=== PATIENT | male | born 1945 | race Hispanic/Latino ===

== ENCOUNTER 2020-05-08 12:30 | Inpatient (IN) | payer MEDICARE, OTHER ==
[~2020-05-08] VITALS: Ht 170.2 cm; Wt 50.7 kg
[2020-05-08 15:17] LABS: BASOPHILS % (AUTO) 0.6 % (0.0-5.0); EOSINOPHILS % (AUTO) 0.4 % (0.0-8.0); HEMATOCRIT 38.2 % (42-54); LYMPHOCYTES % (AUTO) 23.4 % (21.0-51.0); MEAN CORPUSCULAR HEMOGLOBIN 27.9 pg (27.0-33.0); MEAN CORPUSCULAR HGB CONC 32.5 g/dL (32.0-36.0); MONOCYTES % (AUTO) 8.8 % (3.0-13.0); NEUTROPHILS % (AUTO) 66.6 % (40.0-77.0); PLATELET COUNT (AUTO) 259 K/uL (130-400); RED BLOOD CELL COUNT(AUTO) 4.44 MIL/uL (4.50-6.20); RED CELL DISTRIBUTION WIDTH 13.5 % (11.0-15.5); WHITE BLOOD COUNT (AUTO) 5.3 K/uL (4.8-10.8)
[2020-05-08] MEDS ORDERED: ONDANSETRON 4MG INJ ONE (15:27)
[2020-05-08] MEDS ORDERED: MORPHINE 2 MG SYG ONE (15:27)
[2020-05-08 15:35] LABS: INR 1.01 (0.85-1.15)
[2020-05-08 15:36] LABS: ALBUMIN 3.3 g/dL (3.5-5.0); BILIRUBIN,TOTAL 0.5 mg/dL (0.2-1.0); CREATININE 0.7 mg/dL (0.5-1.5); PARTIAL THROMBOPLASTIN TIME 24.2 SEC (26.3-35.5); TOTAL PROTEIN, SERUM 7.1 g/dL (6.0-8.3)
[2020-05-08] MEDS ORDERED: MORPHINE 4 MG SYG IVP PRN (19:30)
[2020-05-08] MEDS: 0.9%NACL 1000ML 1,000 ML IV SCH (19:30)
[2020-05-08] MEDS ORDERED: ONDANSETRON 4MG INJ IVP PRN (19:30)
[2020-05-08] MEDS ORDERED: LACTULOSE 20 GM/30 ML UDCUP PO PRN (19:30)
[2020-05-08] MEDS ORDERED: ACETAMINOPHEN 325 MG TAB PO PRN (19:30)
[2020-05-08] MEDS ORDERED: TEMAZEPAM 15 MG CAPSULE PO PRN (19:30)
[2020-05-08] MEDS ORDERED: ACETAMINOPHEN 650 MG SUPPOSITORY RC PRN (19:30)
[2020-05-08] MEDS ORDERED: CLONIDINE HCL 0.1 MG TABLET PO PRN (19:30)
[2020-05-08 20:34] LABS: CREATINE KINASE, TOTAL 55 U/L (21-232); MYOGLOBIN 38 ng/mL (10-92); TROPONIN I < 0.04 ng/mL (0.00-0.06)
[2020-05-08] MEDS ORDERED: MORPHINE 4 MG SYG ONE (20:40)
[2020-05-08] MEDS: INSULIN HUMULIN R 100 UNIT/ML 3ML SQ SCH (21:00)
[2020-05-08] MEDS ORDERED: HALOPERIDOL INJ 5 MG/ML VIAL ONE (21:10)
[2020-05-08 22:45] VITALS: BP 176/83
[2020-05-08] MEDS ORDERED: HALOPERIDOL INJ 5 MG/ML VIAL IM PRN (23:45)
[2020-05-09] MEDS: HYDROCODONE/ACETAMINOPHEN 5/325 MG TAB PO PRN ×2 (01:10→20:16)
[2020-05-09 02:04] LABS: CREATINE KINASE, TOTAL 246 U/L (21-232); MYOGLOBIN 204 ng/mL (10-92); TROPONIN I < 0.04 ng/mL (0.00-0.06)
[2020-05-09] MEDS: 0.9%NACL 1000ML 1,000 ML IV SCH ×3 (03:30→19:58)
[2020-05-09 03:35] VITALS: BP 151/89
[2020-05-09] MEDS: INSULIN HUMULIN R 100 UNIT/ML 3ML SQ SCH ×4 (07:17→20:52)
[2020-05-09 07:23] LABS: HEMATOCRIT 38.2 % (42-54); MEAN CORPUSCULAR HEMOGLOBIN 28.4 pg (27.0-33.0); MEAN CORPUSCULAR VOLUME 86.2 fL (79-99); RED BLOOD CELL COUNT(AUTO) 4.43 MIL/uL (4.50-6.20); RED CELL DISTRIBUTION WIDTH 13.6 % (11.0-15.5); WHITE BLOOD COUNT (AUTO) 7.9 K/uL (4.8-10.8)
[2020-05-09 07:49] LABS: ALANINE AMINOTRANSFERASE 21 U/L (12-78); ALBUMIN 3.3 g/dL (3.5-5.0); ASPARTATE AMINOTRANSFERASE 24 U/L (10-37); BILIRUBIN,TOTAL 0.6 mg/dL (0.2-1.0); CARBON DIOXIDE 29 mmol/L (21-32); CHLORIDE 102 mmol/L (101-111); CREATINE KINASE, TOTAL 269 U/L (21-232); CREATININE 0.8 mg/dL (0.5-1.5); GLOMERULAR FILTR. RATE CALC 100 mL/min (>60); GLUCOSE,RANDOM 98 mg/dL (70-105); MYOGLOBIN 151 ng/mL (10-92); SODIUM SERUM 138 mmol/L (136-145); TOTAL PROTEIN, SERUM 7.1 g/dL (6.0-8.3); TROPONIN I < 0.04 ng/mL (0.00-0.06); UREA NITROGEN, BLOOD 13 mg/dL (7-18)
[2020-05-09 08:00] VITALS: BP 158/87
[2020-05-09] MEDS: ENOXAPARIN SODIUM 40 MG/0.4 ML SYRINGE SQ SCH (09:00)
[2020-05-09] MEDS: POLYETHYLENE GLYCOL 3350 17 GM POWD.PACK PO SCH (09:00)
[2020-05-09] MEDS: PANTOPRAZOLE 40 MG TAB DR PO SCH (09:00)
[2020-05-09] MEDS: MORPHINE 2 MG SYG IVP PRN ×2 (10:07→17:26)
[2020-05-09 11:44] VITALS: BP 178/94
[2020-05-09 16:00] VITALS: BP 139/84
[2020-05-09 19:05] VITALS: BP 164/95
[2020-05-09 19:39] LABS: CREATINE KINASE, TOTAL 267 U/L (21-232); MYOGLOBIN 137 ng/mL (10-92)
[2020-05-09 23:16] VITALS: BP 147/85
[2020-05-09 23:33] LABS: APPEARANCE,URINE Clear (CLEAR); BILIRUBIN,URINE Negative (NEGATIVE); COLOR,URINE Yellow (YELLOW); GLUCOSE, URINE (UA) Negative (NEGATIVE); KETONES,URINE 15 mg/dL (NEGATIVE); LEUKOCYTE ESTERASE ,URINE Small (NEGATIVE); NITRATE,URINE Negative (NEGATIVE); OCCULT BLOOD,URINE Small (NEGATIVE); PH,URINE 6.5 (5.0-8.0); PROTEIN,URINE Negative (NEGATIVE)
[2020-05-10] VITALS (25 sets, daily range): BP systolic 101–168; BP diastolic 54–97
[2020-05-10 00:10] LABS: BACTERIA,URINE None Seen /HPF (None Seen); SQUAMOUS EPITHELIAL CELL,UR Rare /HPF (0-2); WBC,URINE 0-1 /HPF (0-1)
[2020-05-10 00:11] LABS: RBC,URINE 0-1 /HPF (0-1)
[2020-05-10] MEDS: 0.9%NACL 1000ML 1,000 ML IV SCH ×3 (03:30→19:30)
[2020-05-10 05:21] LABS: BASOPHILS % (AUTO) 0.4 % (0.0-5.0); EOSINOPHILS % (AUTO) 1.1 % (0.0-8.0); HEMATOCRIT 36.1 % (42-54); LYMPHOCYTES % (AUTO) 18.8 % (21.0-51.0); MEAN CORPUSCULAR HEMOGLOBIN 28.1 pg (27.0-33.0); MEAN CORPUSCULAR HGB CONC 33.2 g/dL (32.0-36.0); MEAN CORPUSCULAR VOLUME 84.5 fL (79-99); MONOCYTES % (AUTO) 10.1 % (3.0-13.0); NEUTROPHILS % (AUTO) 69.4 % (40.0-77.0); PLATELET COUNT (AUTO) 208 K/uL (130-400); RED BLOOD CELL COUNT(AUTO) 4.27 MIL/uL (4.50-6.20); RED CELL DISTRIBUTION WIDTH 13.3 % (11.0-15.5); WHITE BLOOD COUNT (AUTO) 8.4 K/uL (4.8-10.8)
[2020-05-10] MEDS: INSULIN HUMULIN R 100 UNIT/ML 3ML SQ SCH ×4 (05:32→20:44)
[2020-05-10 05:51] LABS: ALBUMIN 2.9 g/dL (3.5-5.0); BILIRUBIN,TOTAL 0.7 mg/dL (0.2-1.0); CREATININE 0.6 mg/dL (0.5-1.5); MAGNESIUM 1.8 mg/dL (1.80-2.40); POTASSIUM 3.8 mmol/L (3.5-5.1); TOTAL PROTEIN, SERUM 6.3 g/dL (6.0-8.3)
[2020-05-10] MEDS: MORPHINE 2 MG SYG IVP PRN (06:12)
[2020-05-10] MEDS: POLYETHYLENE GLYCOL 3350 17 GM POWD.PACK PO SCH (08:55)
[2020-05-10] MEDS: ENOXAPARIN SODIUM 40 MG/0.4 ML SYRINGE SQ SCH (08:55)
[2020-05-10] MEDS: PANTOPRAZOLE 40 MG TAB DR PO SCH (08:56)
[2020-05-10] MEDS ORDERED: MIDAZOLAM HCL 1 MG/ML 2ML VIAL ONE (10:57)
[2020-05-10] MEDS ORDERED: LIDOCAINE PF 100MG/5ML (2%) SYRINGE 5ML ONE (10:57)
[2020-05-10] MEDS ORDERED: DEXAMETHASONE SOD PHOSPHATE 10MG/ML 1ML VIAL ONE (10:57)
[2020-05-10] MEDS ORDERED: SUCCINYLCHOLINE CHLORIDE 20 MG/ML 10 ML VIAL ONE (10:57)
[2020-05-10] MEDS ORDERED: ONDANSETRON 4MG INJ ONE (10:58)
[2020-05-10] MEDS ORDERED: PROPOFOL 10 MG/ML 20ML VIAL IV ONE ×2 (10:58→18:24)
[2020-05-10] MEDS ORDERED: NEOSTIGMINE 5MG/5ML SYR IV ONE (10:58)
[2020-05-10] MEDS ORDERED: FENTANYL CITRATE PF 50 MCG/1 ML 2ML VIAL ONE (10:58)
[2020-05-10] MEDS ORDERED: ROCURONIUM 10MG/1ML SYR 10 MG/ML ML ONE (10:58)
[2020-05-10] MEDS ORDERED: GLYCOPYRROLATE 1 MG/5 ML SYRINGE ONE (10:58)
[2020-05-10] MEDS ORDERED: ROPIVACAINE 0.5% 5MG/ML 30ML IJ ONE (11:01)
[2020-05-10] MEDS ORDERED: ALBUMIN (HUMAN) 5% 0 ML IV ONE (11:02)
[2020-05-10] MEDS: CEFAZOLIN SODIUM 1 GM VIAL ONE ×2 (17:01→18:35)
[2020-05-11] VITALS (7 sets, daily range): BP systolic 120–149; BP diastolic 73–89
[2020-05-11] MEDS: HYDROCODONE/ACETAMINOPHEN 5/325 MG TAB PO PRN ×2 (00:25→20:47)
[2020-05-11] MEDS: 0.9%NACL 1000ML 1,000 ML IV SCH ×3 (03:17→17:01)
[2020-05-11 05:50] LABS: HEMATOCRIT 31.2 % (42-54); MEAN CORPUSCULAR HEMOGLOBIN 28.2 pg (27.0-33.0); MEAN CORPUSCULAR HGB CONC 33.7 g/dL (32.0-36.0); MEAN CORPUSCULAR VOLUME 83.9 fL (79-99); RED BLOOD CELL COUNT(AUTO) 3.72 MIL/uL (4.50-6.20); WHITE BLOOD COUNT (AUTO) 10.6 K/uL (4.8-10.8)
[2020-05-11 06:15] LABS: CREATININE 0.8 mg/dL (0.5-1.5); MAGNESIUM 1.7 mg/dL (1.80-2.40); POTASSIUM 4.4 mmol/L (3.5-5.1)
[2020-05-11] MEDS: INSULIN HUMULIN R 100 UNIT/ML 3ML SQ SCH ×4 (06:41→21:00)
[2020-05-11] MEDS ORDERED: GLUCAGON 1MG KIT 1 MG ML IM PRN (06:45)
[2020-05-11] MEDS ORDERED: KCL 20 MEQ ERTAB PO PRN (06:45)
[2020-05-11] MEDS ORDERED: MAGNESIUM 2GM PREMIX 50ML 50 ML IV PRN (06:45)
[2020-05-11] MEDS ORDERED: DEXTROSE 50%-WATER 50 ML DISP.SYRIN IV PRN (06:45)
[2020-05-11] MEDS ORDERED: LIDOCAINE HCL-MPF 1% 2ML VIAL IV PRN (06:45)
[2020-05-11] MEDS ORDERED: POTASSIUM CHLORIDE 20MEQ/100ML 100 ML IV PRN ×2 (06:45)
[2020-05-11] MEDS ORDERED: LIDOCAINE HCL-MPF 1% 2ML VIAL IM PRN (06:45)
[2020-05-11] MEDS: PANTOPRAZOLE 40 MG TAB DR PO SCH (09:14)
[2020-05-11] MEDS: POLYETHYLENE GLYCOL 3350 17 GM POWD.PACK PO SCH (09:14)
[2020-05-11] MEDS: ENOXAPARIN SODIUM 40 MG/0.4 ML SYRINGE SQ SCH (09:14)
[2020-05-11] MEDS ORDERED: ATOR40TA71 PO (09:47)
[2020-05-11] MEDS ORDERED: METF-444 PO (09:47)
[2020-05-11] MEDS ORDERED: SERT-440 PO (09:47)
[2020-05-11] MEDS ORDERED: TRAZ-253 PO (09:47)
[2020-05-11] MEDS ORDERED: HALO5TAB PO (09:47)
[2020-05-11] MEDS ORDERED: DIVA250T45 PO (09:47)
[2020-05-11] MEDS: MORPHINE 2 MG SYG IVP PRN (09:51)
[2020-05-11] MEDS: METOPROLOL SUCCINATE 50 MG TAB.SR.24H PO SCH (11:02)
[2020-05-11] MEDS: CEFTRIAXONE 1G VIAL IVP SCH (14:35)
[2020-05-11] MEDS: DIVALPROEX SODIUM 250 MG TABLET.DR PO SCH (20:42)
[2020-05-11] MEDS: ATORVASTATIN 40 MG TABLET PO SCH (20:42)
[2020-05-12 00:01] VITALS: BP 135/75
[2020-05-12] MEDS: 0.9%NACL 1000ML 1,000 ML IV SCH ×3 (01:15→19:30)
[2020-05-12 04:17] VITALS: BP 143/83
[2020-05-12 05:15] LABS: HEMATOCRIT 28.3 % (42-54); MEAN CORPUSCULAR HEMOGLOBIN 28.9 pg (27.0-33.0); MEAN CORPUSCULAR HGB CONC 34.3 g/dL (32.0-36.0); MEAN CORPUSCULAR VOLUME 84.2 fL (79-99); RED BLOOD CELL COUNT(AUTO) 3.36 MIL/uL (4.50-6.20); RED CELL DISTRIBUTION WIDTH 13.4 % (11.0-15.5); WHITE BLOOD COUNT (AUTO) 10.9 K/uL (4.8-10.8)
[2020-05-12 05:36] LABS: CREATININE 0.6 mg/dL (0.5-1.5); MAGNESIUM 1.7 mg/dL (1.80-2.40); POTASSIUM 3.5 mmol/L (3.5-5.1)
[2020-05-12 07:00] VITALS: BP 162/81
[2020-05-12] MEDS: INSULIN HUMULIN R 100 UNIT/ML 3ML SQ SCH ×4 (07:30→21:00)
[2020-05-12] MEDS: SERTRALINE HCL 50 MG TABLET PO SCH (07:58)
[2020-05-12] MEDS: POLYETHYLENE GLYCOL 3350 17 GM POWD.PACK PO SCH (07:59)
[2020-05-12] MEDS: PANTOPRAZOLE 40 MG TAB DR PO SCH (07:59)
[2020-05-12] MEDS: HYDROCODONE/ACETAMINOPHEN 5/325 MG TAB PO PRN (07:59)
[2020-05-12] MEDS: CEFTRIAXONE 1G VIAL IVP SCH (08:00)
[2020-05-12] MEDS: ENOXAPARIN SODIUM 40 MG/0.4 ML SYRINGE SQ SCH (10:17)
[2020-05-12] MEDS: METOPROLOL SUCCINATE 50 MG TAB.SR.24H PO SCH (10:30)
[2020-05-12 11:30] VITALS: BP 123/68
[2020-05-12] MEDS ORDERED: BISACODYL 10 MG SUPP.RECT RC SCH ×2 (12:50→15:45)
[2020-05-12 16:00] VITALS: BP 130/70
[2020-05-12 20:00] VITALS: BP 140/73
[2020-05-12] MEDS: DIVALPROEX SODIUM 250 MG TABLET.DR PO SCH (21:00)
[2020-05-12] MEDS: ATORVASTATIN 40 MG TABLET PO SCH (21:00)
[2020-05-13] VITALS: BP 144/87
[2020-05-13] MEDS: 0.9%NACL 1000ML 1,000 ML IV SCH ×2 (03:30→20:27)
[2020-05-13 03:45] VITALS: BP 153/68
[2020-05-13 05:02] LABS: HEMATOCRIT 28.5 % (42-54); MEAN CORPUSCULAR HEMOGLOBIN 27.8 pg (27.0-33.0); MEAN CORPUSCULAR HGB CONC 31.9 g/dL (32.0-36.0); MEAN CORPUSCULAR VOLUME 87.2 fL (79-99); RED BLOOD CELL COUNT(AUTO) 3.27 MIL/uL (4.50-6.20); RED CELL DISTRIBUTION WIDTH 13.5 % (11.0-15.5); WHITE BLOOD COUNT (AUTO) 8.4 K/uL (4.8-10.8)
[2020-05-13 05:22] LABS: CREATININE 0.7 mg/dL (0.5-1.5); POTASSIUM 3.6 mmol/L (3.5-5.1)
[2020-05-13] MEDS: INSULIN HUMULIN R 100 UNIT/ML 3ML SQ SCH ×4 (07:30→20:34)
[2020-05-13 08:00] VITALS: BP 154/78
[2020-05-13] MEDS: POLYETHYLENE GLYCOL 3350 17 GM POWD.PACK PO SCH (09:00)
[2020-05-13] MEDS: PANTOPRAZOLE 40 MG TAB DR PO SCH (10:07)
[2020-05-13] MEDS: ENOXAPARIN SODIUM 40 MG/0.4 ML SYRINGE SQ SCH (10:07)
[2020-05-13] MEDS: CEFTRIAXONE 1G VIAL IVP SCH (10:07)
[2020-05-13] MEDS: SERTRALINE HCL 50 MG TABLET PO SCH (10:07)
[2020-05-13] MEDS: METOPROLOL SUCCINATE 50 MG TAB.SR.24H PO SCH (10:30)
[2020-05-13 11:49] VITALS: BP 138/75
[2020-05-13 16:00] VITALS: BP 134/73
[2020-05-13 20:00] VITALS: BP 131/64
[2020-05-13] MEDS: DIVALPROEX SODIUM 250 MG TABLET.DR PO SCH (20:21)
[2020-05-13] MEDS: ATORVASTATIN 40 MG TABLET PO SCH (20:21)
[2020-05-14] VITALS (7 sets, daily range): BP systolic 114–136; BP diastolic 54–79
[2020-05-14] MEDS: POTASSIUM CHLORIDE 10% ELIXIR 20 MEQ/15 ML UDCUP PO PRN ×4 (02:46→16:34)
[2020-05-14] MEDS: 0.9%NACL 1000ML 1,000 ML IV SCH ×3 (03:13→11:30)
[2020-05-14] MEDS: INSULIN HUMULIN R 100 UNIT/ML 3ML SQ SCH ×4 (05:52→20:18)
[2020-05-14] MEDS: PANTOPRAZOLE 40 MG TAB DR PO SCH (09:14)
[2020-05-14] MEDS: CEFTRIAXONE 1G VIAL IVP SCH (09:14)
[2020-05-14] MEDS: POLYETHYLENE GLYCOL 3350 17 GM POWD.PACK PO SCH (09:14)
[2020-05-14] MEDS: SERTRALINE HCL 50 MG TABLET PO SCH (09:14)
[2020-05-14] MEDS: ENOXAPARIN SODIUM 40 MG/0.4 ML SYRINGE SQ SCH (09:15)
[2020-05-14] MEDS: METOPROLOL SUCCINATE 50 MG TAB.SR.24H PO SCH (09:41)
[2020-05-14] MEDS ORDERED: TAMSULOSIN HCL 0.4 MG CAP.ER.24H PO SCH (12:30)
[2020-05-14] MEDS ORDERED: TAMSULOSIN HCL 0.4 MG CAP.ER.24H ONE (16:32)
[2020-05-14] MEDS: DIVALPROEX SODIUM 250 MG TABLET.DR PO SCH (21:08)
[2020-05-14] MEDS: ATORVASTATIN 40 MG TABLET PO SCH (21:08)
[2020-05-15 04:00] VITALS: BP 135/77
[2020-05-15 05:32] LABS: HEMATOCRIT 23.6 % (42-54); MEAN CORPUSCULAR HGB CONC 33.5 g/dL (32.0-36.0); MEAN CORPUSCULAR VOLUME 83.7 fL (79-99); PLATELET COUNT (AUTO) 207 K/uL (130-400); RED BLOOD CELL COUNT(AUTO) 2.82 MIL/uL (4.50-6.20); RED CELL DISTRIBUTION WIDTH 13.1 % (11.0-15.5); WHITE BLOOD COUNT (AUTO) 5.3 K/uL (4.8-10.8)
[2020-05-15 05:47] LABS: CREATININE 0.5 mg/dL (0.5-1.5); POTASSIUM 3.6 mmol/L (3.5-5.1)
[2020-05-15 06:00] LABS: BASOPHILS % (MANUAL) 2 % (0-2); EOSINOPHILS % (MANUAL) 2 % (1-6); LYMPHOCYTES % (MANUAL) 23 % (22-44); MAN.DIFF COMMENT-IMPRESSION MANUAL DIFFERENTIAL; MONOCYTES % (MANUAL) 6 % (2-9); SEGMENTED NEUTROPHILS % 67 % (40-70)
[2020-05-15 06:01] LABS: PLATELET MORPHOLOGY COMMENT ADEQUATE
[2020-05-15 07:00] VITALS: BP 143/73
[2020-05-15] MEDS: INSULIN HUMULIN R 100 UNIT/ML 3ML SQ SCH ×4 (07:30→21:00)
[2020-05-15] MEDS: TAMSULOSIN HCL 0.4 MG CAP.ER.24H PO SCH (09:46)
[2020-05-15] MEDS: CEFTRIAXONE 1G VIAL IVP SCH (09:46)
[2020-05-15] MEDS: PANTOPRAZOLE 40 MG TAB DR PO SCH (09:46)
[2020-05-15] MEDS: SERTRALINE HCL 50 MG TABLET PO SCH (09:47)
[2020-05-15] MEDS: ENOXAPARIN SODIUM 40 MG/0.4 ML SYRINGE SQ SCH (09:47)
[2020-05-15] MEDS: POLYETHYLENE GLYCOL 3350 17 GM POWD.PACK PO SCH (09:47)
[2020-05-15] MEDS: METOPROLOL SUCCINATE 50 MG TAB.SR.24H PO SCH (09:49)
[2020-05-15 11:30] VITALS: BP 121/67
[2020-05-15 16:00] VITALS: BP 142/86
[2020-05-15 20:56] VITALS: BP 165/80
[2020-05-15] MEDS: DIVALPROEX SODIUM 250 MG TABLET.DR PO SCH (21:58)
[2020-05-15] MEDS: ATORVASTATIN 40 MG TABLET PO SCH (21:58)
[2020-05-15 23:51] VITALS: BP 142/82
[2020-05-16 04:37] VITALS: BP 160/87
[2020-05-16 06:04] LABS: CREATININE 0.5 mg/dL (0.5-1.5); POTASSIUM 3.6 mmol/L (3.5-5.1)
[2020-05-16 07:00] VITALS: BP 146/76
[2020-05-16] MEDS: INSULIN HUMULIN R 100 UNIT/ML 3ML SQ SCH ×3 (07:17→16:30)
[2020-05-16] MEDS: PANTOPRAZOLE 40 MG TAB DR PO SCH (09:00)
[2020-05-16] MEDS: CEFTRIAXONE 1G VIAL IVP SCH (09:00)
[2020-05-16] MEDS: SERTRALINE HCL 50 MG TABLET PO SCH (09:00)
[2020-05-16] MEDS: ENOXAPARIN SODIUM 40 MG/0.4 ML SYRINGE SQ SCH (09:00)
[2020-05-16] MEDS: TAMSULOSIN HCL 0.4 MG CAP.ER.24H PO SCH (09:00)
[2020-05-16] MEDS: POLYETHYLENE GLYCOL 3350 17 GM POWD.PACK PO SCH (09:00)
[2020-05-16] MEDS: METOPROLOL SUCCINATE 50 MG TAB.SR.24H PO SCH (10:30)
[2020-05-16 11:30] VITALS: BP 135/72
[2020-05-16 16:00] VITALS: BP 112/71
== END 2020-05-16 17:54 | DRG 522 ==
LOC: EDH 12:30 → EDHIP 16:00 → 3BH 21:55
PROVIDERS: ADMIT Internal Medicine Critical Care Medicine; ATTEND Internal Medicine Critical Care Medicine
PROC: 0SRS039 Replacement of Left Hip Joint, Femoral Surface with Ceramic Synthetic Substitute, Cemented, Open Approach (ICD-10-PCS; principal; 2020-05-10 18:30)
DX: S72.002A Fracture of unspecified part of neck of left femur, initial encounter for closed fracture (principal); R64 Cachexia; Z68.1 Body mass index [BMI] 19.9 or less, adult; N39.0 Urinary tract infection, site not specified; F31.9 Bipolar disorder, unspecified; I10 Essential (primary) hypertension; E78.5 Hyperlipidemia, unspecified; E11.9 Type 2 diabetes mellitus without complications; F03.90 Unspecified dementia, unspecified severity, without behavioral disturbance, psychotic disturbance, mood disturbance, and anxiety; R62.7 Adult failure to thrive; Z79.84 Long term (current) use of oral hypoglycemic drugs; Z20.822 Contact with and (suspected) exposure to COVID-19; W18.39XA Other fall on same level, initial encounter; Y93.89 Activity, other specified; Y92.89 Other specified places as the place of occurrence of the external cause; Y99.8 Other external cause status
CPT/HCPCS: 36415; 71045; 73502; 80048; 80053; 81001; 82550; 82948; 83735; 83874; 84132; 84145; 84484; 85025; 85027; 85610; 85730; 86900; 86901; 87040; 87426; 88304; 88311; 92526; 92610; 93005; 97039; A4354; C1776; G0378; J0330; J0690; J0696; J1100; J1630; J1650; J2001; J2250; J2270; J2405; J2704; J2710; J2795; J3010; J3490; J7030; J7120; P9045; U0003

== ENCOUNTER 2024-02-18 09:50 | Inpatient (IN) | payer OTHER, MEDICARE ==
[~2024-02-18] VITALS: Ht 165.1 cm; Wt 49.4 kg
[~2024-02-18 09:50] MED LIST: ATOR40TA71 PO; DIVA250T45 PO; HALO5TAB PO; SERT-440 PO
--- NOTE | 2024-02-18 10:15 | ERN ---
ED Note History of Present Illness Stated Complaint: FLU LIKE SYMPTOMS Chief Complaint: Influenza Time Seen by MD: 10:05 Dictation: PATIENT IS A 78-YEAR-OLD MALE WITH ALZHEIMER'S THAT IS UNABLE TO PROVIDE A HISTORY. HOWEVER EMS STATES THAT FAMILY SENT HIM IN BECAUSE HE HAD FLU-LIKE SYMPTOMS FOR THE LAST 2-3 DAYS WITH A DECREASED APPETITE AND NOT TAKEN HIS MEDICATIONS. NO NAUSEA VOMITING PATIENT NOTED TO BE VERY LETHARGIC ON APPROACH HOWEVER WE WILL OPEN HIS EYES. NOT ANSWERING QUESTIONS. Allergies: Coded Allergies: No Known Drug Allergies (Verified Allergy, Unknown, 05/08/20) Home Meds Reported Medications Sertraline HCl (Sertraline HCl) 100 Mg Tablet, 100 MG PO DAILY 05/11/20 Haloperidol (Haloperidol) 5 Mg Tablet, 5 MG PO HS 05/11/20 Divalproex Sodium (Divalproex Sodium ER) 250 Mg Tab.er.24h, 250 MG PO HS 05/11/20 Atorvastatin Calcium (Atorvastatin Calcium) 40 Mg Tablet, 40 MG PO HS 05/11/20 Past Medical History Past Medical History: Depression, High Cholesterol, Hypertension, Seizure Additional Past Medical Hx: alzhimner's Surgical History: Other Surgical History Other: LEFT HIP RX RN Note Reviewed/Agreed w/PFSH: Yes Review of System Dictation CONSTITUTIONAL: NEGATIVE EXCEPT FOR HPI WEAKNESS/FLU-LIKE SYMPTOMS HEAD/FACE: NEGATIVE EXCEPT FOR HPI EENT: NEGATIVE EXCEPT FOR HPI RESPIRATORY: NEGATIVE EXCEPT FOR HPI GASTROINTESTINAL/ABDOMINAL: NEGATIVE EXCEPT FOR HPI GENITOURINARY: NEGATIVE EXCEPT FOR HPI MUSCULOSKELETAL: NEGATIVE EXCEPT FOR HPI INTEGUMENTARY: NEGATIVE EXCEPT FOR HPI NEUROLOGICAL/PSYCH: NEGATIVE EXCEPT FOR HPI HEMATOLOGIC/LYMPHATIC: NEGATIVE EXCEPT FOR HPI ALL SYSTEMS NEGATIVE, EXCEPT NOTED ABOVE. 13 POINT REVIEW OF SYSTEMS ASSESSED AND ALL NEGATIVE EXCEPT FOR ABOVE. Initial Vital Sign VS Vital Signs Date Time Temp Pulse Resp B/P (MAP) Pulse Ox O2 Delivery O2 Flow Rate FiO2 02/18/24 09:54 100.2 120 20 136/83 97 02/18/24 13:51 Room Air* 0 21 Physical Exam Dictation VITAL SIGNS REVIEWED GENERAL APPEARANCE: ALERT, LETHARGIC, OPENS EYES TO COMMAND WE WILL NOT ANSWER QUESTIONS APPEARS VERY DEBILITATED HEAD AND FACE: NON-TRAUMATIC. EYES: PERRL, PINK CONJUNCTIVAS, EYELID NO TRAUMA, ANTERIOR CHAMBER WITH ARCUS SENILIS. EARS: PINNAS INTACT AND NO SIGNS OF TRAUMA OR ERYTHEMA EAR CANALS CLEAR AND NO DISCHARGE TM NO ERYTHEMA NOSE: NO DISCHARGE, NO BLEEDING. OROPHARYNX: MOUTH NORMAL, TONGUE PINK, PHARYNX CLEAR,NO ERYTHEMA, TONSILS NO EXUDATES, NO ABSCESSES NOTED, MUCOUS MEMBRANE MOIST NECK: SUPPLE, NON-TENDER, NO THYROMEGALY, NO MASSES, NO JVD, NO BRUITS BREAST:DEFERRED CHEST:NO TENDERNESS, NO CREPITUS, NO PARADOXICAL MOVEMENT, NO RETRACTIONS LUNGS:CLEAR, WELL-VENTILATED, SYMMETRIC, NO RALES, NO WHEEZING, NO RHONCHI, NO STRIDOR, GOOD BREATH SOUNDS BILATERALLY HEART: REGULAR RATE, REGULAR RHYTHM, NO MURMUR, NO GALLOPS VASCULAR: NO PERIPHERAL EDEMA, ABDOMEN: SOFT, POSITIVE BOWEL SOUNDS, NONDISTENDED, NO GUARDING, NONTENDER, NO REBOUND, NO MASSES NO HEPATOMEGALY, NO SPLENOMEGALY, NO GILES'S S IGN, NO HERNIAS. RECTAL: DEFERRED GENITAL: DEFERRED NEUROLOGICAL: SEVERE GENERALIZED BODY WEAKNESS CACHECTIC MUSCULOSKELETAL: NECK NONTENDER, FULL RANGE OF MOTION, BACK NONTENDER, FULL RANGE OF MOTION, EXTREMITIES: NONTENDER, FULL RANGE OF MOTION SKIN: COLOR PINK, DRY, NO TURGOR, NO RASH, NO LACERATIONS, NO ABRASIONS, NO CONTUSIONS. LYMPHATIC: DEFERRED Results (Laboratory/Radiology) Laboratory/Radiology Laboratory Tests Test 02/18/24 11:09 02/18/24 12:00 02/18/24 12:58 White Blood Count 11.7 K/uL (4.8-10.8) H Red Blood Count 4.31 MIL/uL (4.50-6.20) L Hemoglobin 12.7 g/dL (14.0-18.0) L Hematocrit 37.8 % (42-54) L Mean Corpuscular Volume 87.7 fL (79-99) Mean Corpuscular Hemoglobin 29.5 pg (27.0-33.0) Mean Corpuscular Hemoglobin Concent 33.6 g/dL (32.0-36.0) Red Cell Distribution Width 14.1 % (11.0-15.5) Platelet Count 104 K/uL (130-400) L Mean Platelet Volume 11.6 fL (7.5-10.5) H Immature Granulocyte % (Auto) 0.9 % (0-1) Neutrophils (%) (Auto) 77.9 % (40.0-77.0) H Lymphocytes (%) (Auto) 8.4 % (21.0-51.0) L Monocytes (%) (Auto) 12.7 % (3.0-13.0) Eosinophils (%) (Auto) 0.0 % (0.0-8.0) Basophils (%) (Auto) 0.1 % (0.0-5.0) Neutrophils # (Auto) 9.2 K/uL (1.8-7.7) H Lymphocytes # (Auto) 1.0 K/uL (1.0-4.8) Monocytes # (Auto) 1.5 K/uL (0.1-1.0) H Eosinophils # (Auto) 0.00 K/uL (0.00-0.70) Basophils # (Auto) 0.01 K/uL (0.00-0.20) Absolute Immature Granulocyte (auto 0.10 K/uL (0-1) Nucleated Red Blood Cells 0.0 % (0.0-0.19) White Cell Morphology Comment See comments Sodium Level 139 mmol/L (136-145) Potassium Level 3.9 mmol/L (3.5-5.1) Chloride Level 103 mmol/L (101-111) Carbon Dioxide Level 28 mmol/L (21-32) Blood Urea Nitrogen 31 mg/dL (7-18) H Creatinine 1.1 mg/dL (0.5-1.3) Glomerular Filtration Rate Calc 68 mL/min (>90) Random Glucose 128 mg/dL (70-105) H Total Calcium 8.6 mg/dL (8.5-10.1) Troponin I High Sensitivity 75 ng/L (4-75) 91.8 ng/L (4-75) *H Influenza Type A Antigen Positive For Type A Influenza Type B Antigen Negative For Type B SARS-CoV-2 Antigen (Rapid) PRESUMPTIVE NEGATIVE Total Creatine Kinase 446 U/L (21-232) #*H Procalcitonin 4.08 ng/mL (0.05-0.5) H CHEST 1VW REASON: SHORTNESS OF BREATH/COUGH COMPARISON: 02/12/2023 FINDINGS: There is confluent left lower lobe infiltrate consistent with pneumonia. Lungs are otherwise clear. Heart size is normal. Mediastinum and bony thorax appear unremarkable. IMPRESSION: 1. Confluent left lower lobe infiltrate consistent with pneumonia. Labs Reviewed?: Yes EKG Comment: EKG SINUS RHYTHM/HEART RATE 90 PEAKED T-WAVES V4 V5 ED Course ED Course Orders Procedure Category Date Status Time Covid19 (Sars Antigen LAB 02/18/24 Complete Rapid) 10:12 Influenza Type A & B, LAB 02/18/24 Complete Rapid 10:12 Cbc With Differential LAB 02/18/24 Complete 10:12 Troponin I High LAB 02/18/24 Complete Sensitivity 10:12 Urinalysis Profile LAB 02/18/24 Logged 10:12 12 Lead Ekg Tracing- EKG 02/18/24 Resulted Technical 10:12 0.9%Nacl 1000ml (Ns PHA 02/18/24 Complete 1000ml) 10:30 Chest 1vw RAD 02/18/24 Resulted 10:12 Basic Metabolic Panel LAB 02/18/24 Complete 10:12 Blood Cult JANE 02/18/24 In Process 11:46 Ceftriaxone 1g Vial PHA 02/18/24 Complete (Rocephine 1g Inj) 12:00 Azithromycin 500mg+Ns PHA 02/18/24 Complete 250ml (Azithromyci 11:46 Albuterol 0.083% PHA 02/18/24 Complete 2.5mg/3ml (Proventil 12:00 Oseltamivir Phosphate PHA 02/18/24 Complete (Tamiflu) 13:00 0.9%Nacl 1000ml (Ns PHA 02/18/24 Complete 1000ml) 13:00 Admit Orders ADM 02/18/24 Transmitted 12:57 Edm Admit Bridge Order ADM 02/18/24 Transmitted 12:57 Daily Weights CPOE 02/18/24 Transmitted 12:58 I&O Q Shift CPOE 02/18/24 Transmitted 12:58 Famotidine 20mg Tab PHA 02/18/24 In Process (Pepcid 20mg Tab) 21:00 Acetaminophen 325 Tab PHA 02/18/24 In Process (Tylenol 325mg Tab 13:00 Acetaminophen 325 Tab PHA 02/18/24 In Process (Tylenol 325mg Tab 13:00 Ondansetron 4mg Inj PHA 02/18/24 In Process (Zofran 4mg Inj) 13:00 Nitroglycerin 0.4mg PHA 02/18/24 In Process Sl Tab (Nitrostat) 13:00 Ipratropium 0.5 PHA 02/18/24 In Process Mg/2.5 Ml Inh 18:00 Pulse Ox(Continuous) RT 02/18/24 Transmitted 12:58 Procalcitonin LAB 02/18/24 Complete 12:58 Case Management CM 02/18/24 Transmitted Evaluation 12:58 Hydralazine 25mg Tab PHA 02/18/24 In Process ([id number] Tab 13:00 Docusate Sodium 100 PHA 02/18/24 In Process Mg Cap (Colace 100mg 13:00 Polyethylene Glycol PHA 02/18/24 In Process 3350 (Miralax 3350 1 13:00 Admit Orders ADM 02/18/24 Transmitted 12:58 Telemetry Monitoring CPOE 02/18/24 Transmitted 12:58 Activity: Br W/Brp CPOE 02/18/24 Transmitted With Assist 12:58 Heart Healthy Diet DIET 02/18/24 Transmitted Lunch Initiate LAURIE 02/18/24 In Process Hyperglycemia Protoco 12:58 Initiate Po LAURIE 02/18/24 In Process Hypokalemia Protoc 12:58 Potassium Chloride PHA 02/18/24 In Process 20meq/100ml (Potassiu 13:00 Potassium Chl 10% PHA 02/18/24 In Process Elixir 20meq (Kcl 10% 13:00 Potassium Chloride PHA 02/18/24 In Process 20meq Er (K-Dur/Klor- 13:00 Notify Physician If CPOE 02/18/24 Transmitted There Is 12:58 Notify Md On The Next CPOE 02/18/24 Transmitted 12:58 Notify Md On The CPOE 02/18/24 Transmitted Next(Cont.) 12:58 Initiate Npo LAURIE 02/18/24 In Process Hypokalemia Tristan 12:58 Potassium Chloride PHA 02/18/24 Complete 20meq/100ml ([place] 13:00 Notify Physician If CPOE 02/18/24 Transmitted There Is 12:58 Notify Md On The Next CPOE 02/18/24 Transmitted 12:58 Notify Md On The CPOE 02/18/24 Transmitted Next(Cont.) 12:58 Magnesium 2gm Premix PHA 02/18/24 In Process 50ml (Magnesium 2gm 13:00 Magnesium LAB 02/19/24 Verified 04:00 Enoxaparin Sodium 30 PHA 02/19/24 In Process Mg/0.3 Ml (Lovenox) 09:00 Oseltamivir Phosphate PHA 02/18/24 In Process (Tamiflu) 21:00 Azithromycin 500mg+Ns PHA 02/18/24 In Process 250ml (Azithromyci 14:00 Ceftriaxone 2gm Vial PHA 02/18/24 In Process (Rocephin 2gm Inj) 13:00 Cardiac Panel LAB 02/18/24 Complete 12:58 Atorvastatin 40mg PHA 02/18/24 In Process (Lipitor 40mg) 21:00 Haloperidol (Haldol) PHA 02/18/24 In Process 21:00 Home Medication (Home PHA 02/18/24 In Process Medication) 21:00 Ct Head/Brain W/O CT 02/18/24 Resulted Contrast 17:16 Ct Chest W/O Contrast CT 02/18/24 Taken 17:16 Cardiology Consult CONPHYSVC 02/18/24 Transmitted 17:16 Valproic Acid LAB 02/19/24 Verified 04:00 Echo 2-D Complete ECHO 02/18/24 Logged 17:16 *Nursing CPOE 02/18/24 Transmitted Communication: 17:[address] 02/18/24 Transmitted Order 17:16 Metoprolol Tartrate PHA 02/18/24 In Process 25 Mg Tab (Lopressor 21:00 Sertraline Hcl PHA 02/19/24 In Process (Zoloft 50 Mg Tab) 09:00 Lactated Ringers PHA 02/18/24 In Process 1000ml (Lactated 17:30 Comprehensive LAB 02/19/24 Verified Metabolic Panel 04:00 Cbc Without LAB 02/19/24 Verified Differential 04:00 Pt And Ptt LAB 02/19/24 Verified 04:00 Thyroid Stimulating LAB 02/19/24 Verified Hormone 04:00 Lipid Panel LAB 02/19/24 Verified 04:00 Ammonia LAB 02/19/24 Verified 04:00 Lactic Acid LAB 02/19/24 Verified 04:00 Arterial Blood Gas RT 02/19/24 Verified 04:00 Phosphorus LAB 02/19/24 Verified 04:00 Hemoglobin A1c LAB 02/19/24 Verified 04:00 Current Medications Medications (Trade) Dose Ordered Sig/Taz Route PRN Reason Start Time Stop Time Status Last Admin Dose Admin Albuterol Sulfate (Proventil 0.083% 2.5mg/3ml) 2.5 mg ONCE ONCE IH 02/18/24 12:00 02/18/24 12:01 DC 02/18/24 13:57 Azithromycin 250 ml @ 250 mls/hr ONCE STAT IVPB 02/18/24 11:46 02/18/24 12:45 DC Ceftriaxone Sodium (ROCEphine 1G INJ) 1 gm ONCE ONCE IM 02/18/24 12:00 02/18/24 12:01 DC Sodium Chloride 1,000 ml @ 0 mls/hr ONCE ONCE IV 02/18/24 10:30 02/18/24 10:31 DC 02/18/24 10:43 Vital Signs Date Time Temp Pulse Resp B/P (MAP) Pulse Ox O2 Delivery O2 Flow Rate FiO2 02/18/24 17:35 100 19 164/86 96 Nasal Cannula* 2 28 02/18/24 13:52 79 18 02/18/24 13:51 100.0 96 20 183/89 96 Room Air* 0 21 02/18/24 09:54 100.2 120 20 136/83 97 2 20, PATIENT HAS A LEFT LOWER LOBE PNEUMONIA GENERALIZED BODY WEAKNESS DEHYDRATION. HE WILL BE ADMITTED TO THE HOSPITAL FOR IV ANTIBIOTICS FLUID RESUSCITATION AND FAILURE TO THRIVE. 1255, SPOKE WITH [facility] AND REVIEWED EKG LABS CHEST X-RAY AND INTERVENTIONS FOR INFLUENZA A SEPSIS AND PNEUMONIA. HE AGREED TO ADMIT PATIENT. HEART Score Response (Comments) Value EKG: Repolarization changes 1 Age: > 65yrs (+2) 2 Risk Factors: 3+ risk factors (+2) 2 Initial Troponin: 1-3x Normal Limit (+1) 1 Total 6 Medical Decision Making MDM MDM: DIFFERENTIAL DIAGNOSIS: SARS COVID/PNEUMONIA/BRONCHITIS/ACS/AMI/UTI/ELECTROLYTE IMBALANCE/DEHYDRATION/FAILURE TO THRIVE RATIONALE: TESTS CONSIDERED AND ORDERED SECONDARY TO SHARED DECISION MAKING INCLUDE: LABS, ECG AND RADIOLOGY PREVIOUS OUTSIDE RECORDS REVIEWED: OLD ER VISITS. REVIEW MODERATE MEDICATIONS-PER MEDICATION RECONCILIATION NEED FOR HOSPITALIZATION: PATIENT DOES MEET CRITERIA FOR HOSPITALIZATION. MODERATE NEED FOR EMERGENCY MAJOR/MINOR SURGERY: NO THERE ARE NO SOCIAL CONCERNS WITH THIS PATIENT. PRESCRIPTION DRUG MANAGEMENT PRESCRIPTIONS WILL INCLUDE SYMPTOMATIC CARE PATIENT'S PRIOR EXTERNAL MEDICAL RECORDS FROM OTHER ER VISITS WERE REVIEWED BY ME INDICATED. PRIOR TESTING AND RESULTS FROM PREVIOUS VISITS WERE REVIEWED. PRIOR TESTS WERE TAKEN INTO ACCOUNT WITH MEDICAL DECISION MAKING AND RESOURCE UTILIZATION, INDEPENDENT HISTORIAN/HISTORIANS WERE USED TO OBTAIN COMPLETE MEDICAL HISTORY. I INDEPENDENTLY INTERPRETED THE TEST THAT WERE PERFORMED, RESULTS WERE REVIEWED BY ME AND CONSIDERED FINDINGS ON RADIOLOGY IF ORDERED. MEDICAL MANAGEMENT AND EXAMINATION INTERPRETATION DISCUSSIONS WERE HAD BY ME WITH OTHER QUALIFIED HEALTHCARE PROFESSIONALS INDICATED FOR THE PATIENT'S CARE. DX & DISP Disposition: Inpatient Departure Impression: Primary Impression: Sepsis Additional Impressions: Left lower lobe pneumonia, Dehydration, Stage 3 chronic kidney disease, Fever, Failure to thrive, Advanced dementia, Influenza A Critical Time: 30 minutes (I performed a substantive portion of the visit. I have reviewed and personally made and approve the management plan that is documented in the notes by myself with MARGARITA/resident. I acknowledged full responsibility for the patient's management plan.) Condition: Stable Referrals: HETAL ZUNIGA M.D. (PCP) Time of Disposition: 12:23 I have reviewed the case, and I agree with, Diagnosis and Plan I performed a substantive portion of the visit. I have reviewed and personally made and approve the management plan that is documented in the notes by myself with MARGARITA/resident. I acknowledged full responsibility for the patient's management plan. 78-year-old male with advanced Alzheimer's failure to thrive presents for cough congestion. Did have a low-grade fever tachycardia and elevated white count, make SIRS criteria. Source is likely the lungs. Received 20 cc/kg and antibiotics. Did not give the full 30 cc/kg fluid bolus to prevent fluid overload based on the patient's risk factors and comorbidities. After the antibiotics and fluid bolus, on sepsis focused re-evaluation the p atient has stable vital signs and stable perfusion. Patient received neb treatments, IV fluids, antibiotics, hemodynamically stable, admitted to the hospitalist. BIGG NOEL FIOS LINE INSTALLER Feb 18, 2024 10:15 ALAINA CAMPBELL DO Feb 18, 2024 18:32
[2024-02-18] MEDS: 0.9%NACL 1000ML 1,000 ML IV ONE (10:43)
--- NOTE | 2024-02-18 11:01 | EKG ---
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
--- NOTE | 2024-02-18 11:13 | HMCIMG ---
CHEST 1VW REASON: SHORTNESS OF BREATH/COUGH COMPARISON: 02/12/2023 FINDINGS: There is confluent left lower lobe infiltrate consistent with pneumonia. Lungs are otherwise clear. Heart size is normal. Mediastinum and bony thorax appear unremarkable. IMPRESSION: 1. Confluent left lower lobe infiltrate consistent with pneumonia.
[2024-02-18 11:22] LABS: CREATININE 1.1 mg/dL (0.5-1.3); POTASSIUM 3.9 mmol/L (3.5-5.1)
[2024-02-18 11:49] LABS: BASOPHILS # (AUTO) 0.01 K/uL (0.00-0.20); BASOPHILS % (AUTO) 0.1 % (0.0-5.0); HEMATOCRIT 37.8 % (42-54); LYMPHOCYTES % (AUTO) 8.4 % (21.0-51.0); MEAN CORPUSCULAR HEMOGLOBIN 29.5 pg (27.0-33.0); MEAN CORPUSCULAR HGB CONC 33.6 g/dL (32.0-36.0); MEAN CORPUSCULAR VOLUME 87.7 fL (79-99); MONOCYTES # (AUTO) 1.5 K/uL (0.1-1.0); MONOCYTES % (AUTO) 12.7 % (3.0-13.0); NEUTROPHILS # (AUTO) 9.2 K/uL (1.8-7.7); NEUTROPHILS % (AUTO) 77.9 % (40.0-77.0); PLATELET COUNT (AUTO) 104 K/uL (130-400); RED BLOOD CELL COUNT(AUTO) 4.31 MIL/uL (4.50-6.20); RED CELL DISTRIBUTION WIDTH 14.1 % (11.0-15.5); WHITE BLOOD COUNT (AUTO) 11.7 K/uL (4.8-10.8)
[2024-02-18 12:07] LABS: COVID19 (SARS ANTIGEN RAPID) PRESUMPTIVE NEGATIVE (NEGATIVE)
[2024-02-18 12:08] LABS: INFLUENZA TYPE B Negative For Type B (NEGATIVE)
[2024-02-18 12:23] LABS: INFLUENZA TYPE A Positive For Type A (NEGATIVE)
[2024-02-18] MEDS ORDERED: ondanSETRON 4MG INJ IV PRN (13:00)
[2024-02-18] MEDS ORDERED: NITROGLYCERIN 0.4 MG SL TAB SL PRN (13:00)
[2024-02-18] MEDS ORDERED: PoTASSium chloRIDE 20MEQ/100ML 100 ML IV PRN ×2 (13:00)
[2024-02-18] MEDS ORDERED: PoTASSium chloRIDE 20MEQ ER 20 MEQ ERTAB PO PRN (13:00)
[2024-02-18] MEDS ORDERED: acetaMINOPHEN 325 MG TAB PO PRN (13:00)
[2024-02-18] MEDS ORDERED: doCUSate SODIUM 100 MG CAP PO PRN (13:00)
[2024-02-18] MEDS ORDERED: polyETHYLene GLYCol 3350 17 GM POWD.PACK PO PRN (13:00)
[2024-02-18] MEDS ORDERED: hydrALAZine 25MG TABLET PO PRN (13:00)
[2024-02-18] MEDS ORDERED: PoTASSium chl 10% ELIXIR 20MEQ 20 MEQ/15 ML UDCUP PO PRN (13:00)
[2024-02-18] MEDS: AZITHROMYCIN 500MG+NS 250ML 250 ML IVPB STA (13:22)
[2024-02-18] MEDS: cefTRIAXone 1G VIAL IM ONE (13:22)
[2024-02-18] MEDS: CEFTRIAXONE 2GM VIAL IVPB SCH (13:42)
[2024-02-18] MEDS: OSELTAMIVIR PHOSPHATE 75 MG CAP PO ONE (13:42)
[2024-02-18] MEDS: [UNRECOGNIZED DRUG - OTHER] IV ONE (13:42)
[2024-02-18 13:52] VITALS: PULSE 79; RESP 18
[2024-02-18] MEDS: ALBUTEROL 0.083% 2.5 MG/3 ML INH IH ONE (13:57)
[2024-02-18] MEDS: AZITHROMYCIN 500MG+NS 250ML 250 ML IVPB SCH (14:35)
--- NOTE | 2024-02-18 18:15 | NUR ---
VASU MADDOX# [phone] CALL IF ANY QUESTIONS
--- NOTE | 2024-02-18 18:22 | HMCIMG ---
Exam: NONCONTRAST CT BRAIN REASON: ams. COMPARISON: None. TECHNIQUE: Images are obtained from vertex to the skull base. The exam was performed without IV contrast. FINDINGS: There are generous ventricles and sulci. There is decreased attenuation in the deep central white matter. These findings are consistent with atrophy. There are no acute appearing focal parenchymal lesions. There is no evidence of mass, intracranial hemorrhage or acute stroke. Posterior fossa and brainstem structures appear unremarkable. There are no abnormal fluid collections. Extra cranial soft tissues appear unremarkable as well. IMPRESSION: 1. Atrophy, no acute finding. CT was performed with one or more following dose reduction techniques: automated exposure control, adjustment of the mA and kv according to patient's size, or use of a iterative reconstruction technique.
--- NOTE | 2024-02-18 18:30 | NUR ---
RECIVED ROOM 422 AT THIS TIME
[2024-02-18] MEDS: LACTATED RINGERS 1000ML 1,000 ML IV SCH (18:44)
--- NOTE | 2024-02-18 18:48 | NUR ---
2ND ATTEMPT TO SPEAK WITH NURSE, BUT NO ANSWER.
[2024-02-18] MEDS: IpraTROPium 0.5 MG/2.5 ML INH IH SCH (19:00)
[2024-02-18 19:03] VITALS: PULSE 98; RESP 18
[2024-02-18 19:04] VITALS: PULSE 98; RESP 18; O2SAT 92
[2024-02-18 19:34] VITALS: TEMP 101.1
[2024-02-18 19:34] LABS: ADD UA MICROSCOPIC YES; APPEARANCE,URINE CLEAR (CLEAR); BILIRUBIN,URINE NEGATIVE (NEGATIVE); COLOR,URINE YELLOW (YELLOW); GLUCOSE, URINE (UA) NEGATIVE (NEGATIVE); KETONES,URINE 10 mg/dL (NEGATIVE); LEUKOCYTE ESTERASE ,URINE NEGATIVE Leu/uL (NEGATIVE); NITRATE,URINE NEGATIVE (NEGATIVE); OCCULT BLOOD,URINE MODERATE (NEGATIVE); PH,URINE 5.5 (5.0-8.0); PROTEIN,URINE 20 mg/dL (NEGATIVE); UROBILINOGEN,URINE 0.2 mg/dL (0.2-1.0)
[2024-02-18] MEDS: acetaMINOPHEN 325 MG TAB PO PRN (19:34)
[2024-02-18 19:36] LABS: MUCUS,URINE RARE LPF (None Seen); SQUAMOUS EPITHELIAL CELL,UR RARE /HPF (0-2)
[2024-02-18 20:30] VITALS: BP 149/83; PULSE 83; RESP 18; TEMP 97.5; O2SAT 97
[2024-02-18] MEDS: HALOPERIDOL 5 MG TABLET PO SCH (21:00)
[2024-02-18] MEDS: DIVALPROEX SODIUM 250 MG PO SCH (21:00)
--- NOTE | 2024-02-18 21:35 | HP ---
[facility] HISTORY & PHYSICAL Date Patient Seen: Feb 18, 2024 Time of Visit: 21:27 Supervising Physician: JOSELYN LOVE MD PROBLEM LIST: Systemic inflammatory response syndrome on admission Acute early sepsis without septic shock Acute hypoxic respiratory failure on admission Left lower lobe pneumonia on admission, community acquired Influenza A viral infection on admission Dementia with acute encephalopathy on admission Seizures disorder Hypertension Acute non STEMI type 2 secondary to metabolic demand Hyperlipidemia Acute dehydration on admission with acute kidney injury on top of CKD HPI: 78 years old man brought in by family due to poor appetite, confusion, cough and fever Symptoms started a few days ago Patient suffers from dementia and is non verbal, most of the information obtained by family As per family, patient not being like himself No diarrhea No seizures No nausea or vomiting PAST MEDICAL HX: dementia, seizures, hyperlipidemia, hypertension PAST SURGICAL HX: right hip fracture SOCIAL HISTORY: No tobacco, ETOH, or illicit drug use Coded Allergies: No Known Drug Allergies (Verified Allergy, Unknown, 05/08/20) REVIEW OF SYSTEMS: Unable to obtain from patient due to encephalopathy PHYSICAL EXAM: GENERAL: alert, weak, awake oriented x 3 HEENT: EOMI, Sclera non icteric, moist mucosa NECK: Supple, no JVD, trachea midline LUNGS: decreased breath sounds, no wheezing HEART: Regular rate and rhythm. Normal S1 and S2, without murmurs ABD: Abdomen soft, nontender. Bowel sounds present EXT: No clubbing cyanosis or edema NEURO: Alert and oriented to person, follows commands Vital Signs (last 8hr) Date Time Temp Pulse Resp B/P (MAP) Pulse Ox O2 Delivery O2 Flow Rate FiO2 02/18/24 20:20 99.9 Nasal Cannula* 2 02/18/24 19:34 101.1 02/18/24 19:30 101.1 94 17 154/80 97 Nasal Cannula* 2 02/18/24 19:04 98 18 N/A Room Air 1.0 24 02/18/24 19:03 98 18 02/18/24 17:35 100 19 164/86 96 Nasal Cannula* 2 02/18/24 13:52 79 18 02/18/24 13:51 100.0 96 20 183/89 96 Room Air* 0 21 LABS: Hematology Labs: Test 02/18/24 11:09 Range/Units White Blood Count 11.7 H 4.8-10.8 K/uL Red Blood Count 4.31 L 4.50-6.20 MIL/uL Hemoglobin 12.7 L 14.0-18.0 g/dL Hematocrit 37.8 L 42-54 % Mean Corpuscular Volume 87.7 79-99 fL Mean Corpuscular Hemoglobin 29.5 27.0-33.0 pg Mean Corpuscular Hemoglobin Concent 33.6 32.0-36.0 g/dL Red Cell Distribution Width 14.1 11.0-15.5 % Platelet Count 104 L 130-400 K/uL Mean Platelet Volume 11.6 H 7.5-10.5 fL Immature Granulocyte % (Auto) 0.9 0-1 % Neutrophils (%) (Auto) 77.9 H 40.0-77.0 % Lymphocytes (%) (Auto) 8.4 L 21.0-51.0 % Monocytes (%) (Auto) 12.7 3.0-13.0 % Eosinophils (%) (Auto) 0.0 0.0-8.0 % Basophils (%) (Auto) 0.1 0.0-5.0 % Neutrophils # (Auto) 9.2 H 1.8-7.7 K/uL Lymphocytes # (Auto) 1.0 1.0-4.8 K/uL Monocytes # (Auto) 1.5 H 0.1-1.0 K/uL Eosinophils # (Auto) 0.00 0.00-0.70 K/uL Basophils # (Auto) 0.01 0.00-0.20 K/uL Absolute Immature Granulocyte (auto 0.10 0-1 K/uL Nucleated Red Blood Cells 0.0 0.0-0.19 % White Cell Morphology Comment See comments Chemistry Labs: Test 02/18/24 12:58 02/18/24 11:09 Range/Units Total Creatine Kinase 446 #*H 21-232 U/L Troponin I High Sensitivity 91.8 *H 4-75 ng/L Procalcitonin 4.08 H 0.05-0.5 ng/mL Sodium Level 139 136-145 mmol/L Potassium Level 3.9 3.5-5.1 mmol/L Chloride Level 103 101-111 mmol/L Carbon Dioxide Level 28 21-32 mmol/L Blood Urea Nitrogen 31 H 7-18 mg/dL Creatinine 1.1 0.5-1.3 mg/dL Glomerular Filtration Rate Calc 68 >90 mL/min Random Glucose 128 H 70-105 mg/dL Total Calcium 8.6 8.5-10.1 mg/dL DIAGNOSTICS / RADIOLOGY RESULTS: [ Right lower lobe infiltrate ] PLAN CT of the head [facility] Speech language pathology evaluation Cardiology consult 2D echocardiogram Resume lipitor Resume metoprolol Get CT scan of chest without contrast NEURO: Minimize central acting medications as possible. Maintain fall precautions, adequate lighting during the day PULMONARY: Supplemental 02 as needed. Maintain aspiration precautions at all times CARDIOVASCULAR: Follow hemodynamics. Vital signs per facility protocol GI & NUTRITION: Continue with nutritional support. Continue stool softeners and laxatives as needed. KIDNEYS & ELECTROLYTES: Strict monitoring of intake, output and overall fluid balance. Avoid nephrotoxic medications to the extent possible. Medications to be dosed according to renal function. Monitor electrolytes and replace as needed ENDOCRINE: Maintain blood glucose between 100-180 at all times. Hypoglycemia protocol in place INFECTIOUS DISEASE: Trend temperature, WBC and procalcitonin level Follow cultures, deescalate antibiotics as soon as possible. Panculture if new onset fever ONCOLOGY/HEMATOLOGY/COAGULATION: Monitor for s/s of bleeding Monitor hemoglobin, coagulation studies as needed SKIN: Pressure ulcer prevention per facility protocol Specialty mattress ORTHO/REHAB: Continue PT/OT Prophylaxis: Continue GI and DVT prophylaxis Code Status: Full Resuscitation Disposition: TBD Other: Total patient care time exceeds 35 minutes excluding all procedures. ATTESTATION BY PHYSICIAN History and physical scribed by GÓMEZ Cummingsc on my behalf and I attest to the clinical accuracy of the note JOSELYN LOVE MD I personally scribed for JOSELYN LOVE MD ([email or web address]) on 02/18/24 at 21:34. Electronically submitted by Antione James ([email or web address]). JOSELYN LOVE MD Feb 18, 2024 21:34
[2024-02-18] MEDS: atorVAStatin 40 MG TABLET PO SCH (22:27)
[2024-02-18] MEDS: FAMOTIDINE 20MG TAB PO SCH (22:27)
[2024-02-18] MEDS: metoPROLOL tartRATE 25 MG TAB PO SCH (22:27)
[2024-02-18] MEDS: OSELTAMIVIR PHOSPHATE 75 MG CAP PO SCH (22:27)
[2024-02-18 23:04] VITALS: PULSE 91; RESP 18
[2024-02-19] VITALS (13 sets, daily range): BP systolic 126–155; BP diastolic 52–74; PULSE 60–72; RESP 16–18; TEMP 97.4–98.3; O2SAT 95–97
[2024-02-19 03:51] LABS: ABG HCO3 25.3 mmol/L (21.0-28.0); ABG OXYGEN SATURATION 96.5 % (94.0-98.0); ABG PCO2 39 mmHg (35-48); ABG PH 7.426 (7.350-7.450); PO2, ARTERIAL BG 83.8 mmHg (83.0-108.0); VENT MODE, BG 2LNC (ROOM AIR)
[2024-02-19 05:18] LABS: HEMATOCRIT 36.2 % (42-54); MEAN CORPUSCULAR HEMOGLOBIN 29.4 pg (27.0-33.0); MEAN CORPUSCULAR HGB CONC 32.9 g/dL (32.0-36.0); MEAN CORPUSCULAR VOLUME 89.4 fL (79-99); RED BLOOD CELL COUNT(AUTO) 4.05 MIL/uL (4.50-6.20); RED CELL DISTRIBUTION WIDTH 14.4 % (11.0-15.5); WHITE BLOOD COUNT (AUTO) 9.8 K/uL (4.8-10.8)
[2024-02-19 05:29] LABS: INR 1.04 (0.85-1.15); PROTHROMBIN TIME 11.2 SEC (9.6-11.6)
[2024-02-19 05:30] LABS: PARTIAL THROMBOPLASTIN TIME 32.5 SEC (26.3-35.5)
[2024-02-19 06:41] LABS: ALANINE AMINOTRANSFERASE 29 U/L (12-78); ALBUMIN 2.5 g/dL (3.5-5.0); AMMONIA 12 umol/L (11-32); ASPARTATE AMINOTRANSFERASE 58 U/L (10-37); CARBON DIOXIDE 25 mmol/L (21-32); CHLORIDE 107 mmol/L (101-111); CHOLESTEROL 103 mg/dL (<200); CREATININE 0.8 mg/dL (0.5-1.3); GLOMERULAR FILTR. RATE CALC 90 mL/min (>90); GLUCOSE,RANDOM 100 mg/dL (70-105); HDL CHOLESTEROL 55 mg/dL (29-71); LDL DIRECT 39 mg/dL (0-99); PHOSPHORUS 3.2 mg/dL (2.5-4.9); POTASSIUM 3.9 mmol/L (3.5-5.1); SODIUM SERUM 143 mmol/L (136-145); THYROID STIMULATING HORMONE 1.08 uIU/mL (0.36-3.74); TOTAL PROTEIN, SERUM 6.3 g/dL (6.0-8.3); TRIGLYCERIDES 47 mg/dL (30-200); UREA NITROGEN, BLOOD 25 mg/dL (7-18)
[2024-02-19 06:42] LABS: VALPROIC ACID < 3 mcg/mL (50-100)
--- NOTE | 2024-02-19 08:50 | HMCIMG ---
CT NONCONTRAST CHEST Comparison Study: none History: ams Technique: Helical CT of the chest without IV contrast at 5 mm collimation. Coronal and sagittal reformations also done. CT Dose Index (CTDI): 2.38 mGy Dose Length Product (DLP): 94.8 total mGy-cm Findings: The airway is intact. The trachea and major bronchi are unremarkable. The chest exam shows no pulmonary nodules or masses. Bilateral basal posterior segment infiltrates are seen. No pleural effusions are identified. There is no pneumothorax. There is no evidence of pneumomediastinum. The nonenhanced exam of the chrissy and mediastinum is unremarkable. No evidence of hilar enlargement is seen. The aorta shows no aneurysmal dilatation or significant atheromatous calcification. No significant brachiocephalic vascular abnormalities are seen. The heart is unremarkable. It is not enlarged. No significant coronary arterial calcifications are seen. There is no pericardial effusion. The rib cage appears unremarkable. The soft tissues of the chest wall are unremarkable. The dorsal spine shows no significant abnormalities. IMPRESSION: Bilateral pneumonia. Follow-up advised. This study was performed using dose reduction techniques to include automated exposure control and/or adjustment of the mA and/or kV according to patient size.
[2024-02-19] MEDS: ENOXAPARIN SODIUM 30 MG/0.3 ML SQ SCH (09:00)
[2024-02-19] MEDS: SERTraline HCL 50 MG TABLET PO SCH (10:11)
--- NOTE | 2024-02-19 10:14 | NUR ---
PLATELETS 94
--- NOTE | 2024-02-19 11:00 | NUR ---
BEDSIDE SWALLOW EVAL COMPLETED. No overt s/s of aspiration observed. Recommend PUREE solids, thin liquids, and pills CRUSHED WITH PUREE as tolerated. Compensatory strategies: 1. sit upright during and 30 minutes after meals 2. slow oral intake 3. small bites/sips 4. ASSIST WITH FEEDING 5. NO STRAWS Pt downgraded to PUREE solids due to overall debility AND LABORED MASTICATION. PREPARATION PLANT SUPERVISOR reviewed results and recommendations with patient and nurse SCOTTY. PREPARATION PLANT SUPERVISOR educated patient/NURSE on risks and consequences of aspiration. Speech therapy not warranted at this time. All questions answered. Addendum: 02/19/24 at 1231 by TRAVON LAROSE Amended: Links added.
--- NOTE | 2024-02-19 11:52 | PN ---
[facility] PROGRESS NOTE Date Patient Seen: Feb 19, 2024 Time of Visit: 11:52 Supervising Physician: Andrew Moreland MD PROBLEM LIST: Acute hypoxic respiratory failure, POA Systemic inflammatory response syndrome on admission Acute early sepsis without septic shock Acute hypoxic respiratory failure on admission Superimposed left lower lobe community-acquired pneumonia, POA Influenza A viral infection on admission Dementia with acute encephalopathy on admission Seizures disorder Hypertension Acute non STEMI type 2 secondary to metabolic demand Hyperlipidemia Acute dehydration on admission with acute kidney injury on top of CKD PLAN CT of the head without contrast negative for acute findings, atrophy Depakote level <3 Speech language pathology evaluation-No overt s/s of aspiration observed. Recommend PUREE solids, thin liquids, and pills CRUSHED WITH PUREE as tolerated. Cardiology consult pending 2D echocardiogram LVEF is 60-65%., diastolic function is normal, aortic valve leaflet appears thickened open well. Resume lipitor Resume metoprolol Get CT scan of chest without contrast-shows bilateral pneumonia Continue Tamiflu, Rocephin and doxycycline SCDs for DVT prophylaxis, Protonix b.i.d for GI prophylaxis. Avoid steroids as much as possible due to positive for influenza A Continue Atrovent treatments q.6 hours with CPT PT eval and treat. INTERVAL HISTORY: Patient appears to lethargic but easily arousable to voice. He is pleasantly confused, appears to be baseline due to his underlying dementia. ABG this morning unremarkable on 2 L via nasal cannula. H&H slightly decreased from hydration 11.9 over 36.[place] [id number] slightly decreased as well. Holding Lovenox for now, SCDs only due to acute thrombocytopenia. Chemistry creatinine is 0.8 GFR 90, trending troponins and patient had one elevated troponin at 91.8 but trending down with the latest one being 43.8 normal. CK trended 446, 759, 795. Patient continues with light hydration of LR. Blood cultures with no growth times 24 hours. 2D echo shows left ventricle is normal size, LVEF of 60-65% left ventricular diastolic function is normal aortic valve leaflets appeared thickened open well. There is no pericardial effusion IVC is normal size and collapses less than 50% with inspiration. CTA head of the brain with no acute findings, atrophy. On CT of the chest shows bilateral pneumonia. He is pending Cardiology consult he continues on Tamiflu 75 mg p.o. b.i.d, Rocephin and azithromycin. He has been evaluated by speech therapy and passed bedside eval. REVIEW OF SYSTEMS: Unable to obtain from patient due to encephalopathy PHYSICAL EXAM: GENERAL: alert, weak, awake oriented x 3 HEENT: EOMI, Sclera non icteric, moist mucosa NECK: Supple, no JVD, trachea midline LUNGS: decreased breath sounds, no wheezing HEART: Regular rate and rhythm. Normal S1 and S2, without murmurs ABD: Abdomen soft, nontender. Bowel sounds present EXT: No clubbing cyanosis or edema NEURO: Alert and oriented to person, follows commands Vital Signs (last 8hr) Date Time Temp Pulse Resp B/P (MAP) Pulse Ox O2 Delivery O2 Flow Rate FiO2 02/19/24 08:10 72 18 N/Cannula Low lpm 2.0 28 02/19/24 08:07 97.7 60 16 134/52 95 Nasal Cannula 2.0 02/19/24 06:44 65 18 02/19/24 04:00 97.9 70 16 131/61 98 Nasal Cannula 2.0 LABS: Hematology Labs: Test 02/19/24 04:30 02/18/24 11:09 Range/Units White Blood Count 9.8 4.8-10.8 K/uL Red Blood Count 4.05 L 4.50-6.20 MIL/uL Hemoglobin 11.9 L 14.0-18.0 g/dL Hematocrit 36.2 L 42-54 % Mean Corpuscular Volume 89.4 79-99 fL Mean Corpuscular Hemoglobin 29.4 27.0-33.0 pg Mean Corpuscular Hemoglobin Concent 32.9 32.0-36.0 g/dL Red Cell Distribution Width 14.4 11.0-15.5 % Platelet Count 94 L 130-400 K/uL Mean Platelet Volume 11.1 H 7.5-10.5 fL Nucleated Red Blood Cells 0.0 0.0-0.19 % Immature Granulocyte % (Auto) 0.9 0-1 % Neutrophils (%) (Auto) 77.9 H 40.0-77.0 % Lymphocytes (%) (Auto) 8.4 L 21.0-51.0 % Monocytes (%) (Auto) 12.7 3.0-13.0 % Eosinophils (%) (Auto) 0.0 0.0-8.0 % Basophils (%) (Auto) 0.1 0.0-5.0 % Neutrophils # (Auto) 9.2 H 1.8-7.7 K/uL Lymphocytes # (Auto) 1.0 1.0-4.8 K/uL Monocytes # (Auto) 1.5 H 0.1-1.0 K/uL Eosinophils # (Auto) 0.00 0.00-0.70 K/uL Basophils # (Auto) 0.01 0.00-0.20 K/uL Absolute Immature Granulocyte (auto 0.10 0-1 K/uL White Cell Morphology Comment See comments Chemistry Labs: Test 02/19/24 05:46 02/19/24 04:30 02/18/24 12:58 Range/Units Whole Blood Glucose 84 70-110 MG/DL Sodium Level 143 136-145 mmol/L Potassium Level 3.9 3.5-5.1 mmol/L Chloride Level 107 101-111 mmol/L Carbon Dioxide Level 25 21-32 mmol/L Blood Urea Nitrogen 25 H 7-18 mg/dL Creatinine 0.8 0.5-1.3 mg/dL Glomerular Filtration Rate Calc 90 >90 mL/min Random Glucose 100 70-105 mg/dL Hemoglobin A1c 6.0 4.0-6.0 % Estimated Average Glucose (eAG) 126 70-126 mg/dL Lactic Acid Level 2.0 0.8-2.5 mmol/L Total Calcium 8.6 8.5-10.1 mg/dL Phosphorus Level 3.2 2.5-4.9 mg/dL Magnesium Level 2.00 1.80-2.40 mg/dL Total Bilirubin 1.0 0.2-1.0 mg/dL Aspartate Amino Transf (AST/SGOT) 58 H 10-37 U/L Alanine Aminotransferase (ALT/SGPT) 29 12-78 U/L Alkaline Phosphatase 63 50-136 U/L Ammonia 12 11-32 umol/L Total Protein 6.3 6.0-8.3 g/dL Albumin 2.5 L 3.5-5.0 g/dL Triglycerides Level 47 30-200 mg/dL Cholesterol Level 103 <200 mg/dL LDL Cholesterol 39 0-99 mg/dL HDL Cholesterol 55 29-71 mg/dL Thyroid Stimulating Hormone (TSH) 1.08 0.36-3.74 uIU/mL Total Creatine Kinase 446 #*H 21-232 U/L Troponin I High Sensitivity 91.8 *H 4-75 ng/L Procalcitonin 4.08 H 0.05-0.5 ng/mL Coagulation Labs: Test 02/19/24 04:30 Range/Units Prothrombin Time 11.2 9.6-11.6 SEC Prothromb Time International Ratio 1.04 0.85-1.15 Activated Partial Thromboplast Time 32.5 26.3-35.5 SEC DIAGNOSTICS / RADIOLOGY RESULTS: [ ] IMAGING REPORT Signed PATIENT: JF ECHOLS MR#: [id number] : 1945 SEX: M AGE: 78 LOCATION: [facility] ORDER 22 [facility]: [facility] REPORT#: [id number] SERVICE 15 REASON: ntemi ORDERING PHYSICIAN: JOSELYN LOVE MD PROCEDURE: ECHO CMP - ECHO 2-D COMPLETE APPROVED REPORT EXAM: Two-dimensional and M-mode echocardiogram with Doppler and color Doppler. INDICATION ICD: NSTEMI 2D Dimensions RVDd 3.5 cm LVEF(%) 56.5 (>50%) LVED Vol(simp.) 110.0 mL IVSd 0.9 (0.7-1.1cm) FS(%) 29 % LVES Vol(simp.) 43.3 mL LVDd 3.8 (3.8-5.6cm) LA (2D) 2.5 (1.6-4.0cm) LVEF(%, simp.) 61 % PWd 1.0 (0.7-1.1cm) Ao Root(2D) 3.6 (2.0-3.7cm) LA ESV INDEX (4CH) 34.40 mL/m2 IVSs 1.0 cm LVOT diam 2.2 (1.8-2.4cm) LA ESV INDEX (2CH) 15.30 mL/m2 LVDs 2.7 (2.5-4.0cm) LA ESV INDEX (BP) 23.10 mL/m2 PWs 1.5 cm Deformation Strain Apical 4 23.0 % Apical 2 20.0 % Apical 3 16.0 % Global Strain 20.0 % M-Mode Dimensions EPSS 0.5 cm Aortic Valve AoV VTI 0.4 m Ao Mean GR 7.0 mmHg LVOT VTI 0.31 m JOSE LUIS (VMAX) 3.3 cm2 JOSE LUIS (VTI) 3.3 cm2 Mitral Valve MV E Vmax 56.8 cm/s DECEL Time 201 ms MV A Vmax 36.9 cm/s P 1/2 T 48 ms E/A ratio 1.5 MVA (PHT) 4.6 cm2 MR Max PG 26 mmHg TDI E/E' Medial 9.3 E/E' Lateral 9.2 Medial E' Peak V 6.10 cm/s Lateral E' Peak V 6.20 cm/s Pulmonary Valve PV VTI 0.19 m PV Mean GR 2 mmHg Tricuspid Valve RAP (EST) 8 mmHg RVSP 8.0 mmHg Left Ventricle The left ventricle is normal size. There is normal left ventricular wall thickness. LVEF is 60-65%. The left ventricular diastolic function is normal. Right Ventricle The right ventricle is normal size. The right ventricular systolic function is normal. Atria The left atrium size is normal. The right atrium size is normal. Aortic Valve The aortic valve is normal in structure. Aortic valve leaflets appear thickened open well. There is no aortic valvular stenosis. Mitral Valve The mitral valve is normal in structure. There is trace of mitral valve regurgitation noted. There is no mitral valve stenosis. Tricuspid Valve The tricuspid valve is normal in structure. There is no tricuspid valve regurgitation noted. Pulmonic Valve The pulmonary valve is normal in structure. There is no pulmonic valvular regurgitation. Great Vessels The aortic root is normal in size. The IVC is normal in size and collapses <50% with inspiration. Pericardium There is no pericardial effusion. Other Information Quality : Adequate Conclusion The left ventricle is normal size. LVEF is 60-65%. The left ventricular diastolic function is normal. The right ventricle is normal size. The right ventricular systolic function is normal. The left atrium size is normal. The right atrium size is normal. Aortic valve leaflets appear thickened open well. There is no pericardial effusion. DICTATED BY: PETE ISBELL MD DATE: 02/19/24 7801 ELECTRONICALLY SIGNED BY: PETE ISBELL MD DATE: 02/19/[address] of the head without contrast negative for acute findings, atrophy Depakote level <3 Speech language pathology evaluation-No overt s/s of aspiration observed. Recommend PUREE solids, thin liquids, and pills CRUSHED WITH PUREE as tolerated. Cardiology consult pending 2D echocardiogram LVEF is 60-65%., diastolic function is normal, aortic valve leaflet appears thickened open well. Resume lipitor Resume metoprolol Get CT scan of chest without contrast-shows bilateral pneumonia Continue Tamiflu, Rocephin and doxycycline SCDs for DVT prophylaxis, Protonix b.i.d for GI prophylaxis. Avoid steroids as much as possible due to positive for influenza A Continue Atrovent treatments q.6 hours with CPT PT eval and treat. NEURO: Minimize central acting medications as possible. Maintain fall precautions, adequate lighting during the day PULMONARY: Supplemental 02 as needed. Maintain aspiration precautions at all times CARDIOVASCULAR: Follow hemodynamics. Vital signs per facility protocol GI & NUTRITION: Continue with nutritional support. Continue stool softeners and laxatives as needed. KIDNEYS & ELECTROLYTES: Strict monitoring of intake, output and overall fluid balance. Avoid nephrotoxic medications to the extent possible. Medications to be dosed according to renal function. Monitor electrolytes and replace as needed ENDOCRINE: Maintain blood glucose between 100-180 at all times. Hypoglycemia protocol in place INFECTIOUS DISEASE: Trend temperature, WBC and procalcitonin level Follow cultures, deescalate antibiotics as soon as possible. Panculture if new onset fever ONCOLOGY/HEMATOLOGY/COAGULATION: Monitor for s/s of bleeding Monitor hemoglobin, coagulation studies as needed SKIN: Pressure ulcer prevention per facility protocol Specialty mattress ORTHO/REHAB: Continue PT/OT Prophylaxis: Continue GI and DVT prophylaxis Code Status: Full Resuscitation Disposition: TBD Other: Total patient care time exceeds 35 minutes excluding all procedures. GEOVANNA FATIMA [facility] Feb 19, 2024 11:52
--- NOTE | 2024-02-19 15:32 | HMCSR ---
APPROVED REPORT EXAM: Two-dimensional and M-mode echocardiogram with Doppler and color Doppler. INDICATION ICD: NSTEMI 2D Dimensions RVDd3.5 cmLVEF(%)56.5 (>50%)LVED Vol(simp.)110.0 mL IVSd0.9 (0.7-1.1cm)FS(%)29 %LVES Vol(simp.)43.3 mL LVDd3.8 (3.8-5.6cm)LA (2D)2.5 (1.6-4.0cm)LVEF(%, simp.)61 % PWd1.0 (0.7-1.1cm)Ao Root(2D)3.6 (2.0-3.7cm)LA ESV INDEX (4CH)34.40 mL/m2 IVSs1.0 cmLVOT diam2.2 (1.8-2.4cm)LA ESV INDEX (2CH)15.30 mL/m2 LVDs2.7 (2.5-4.0cm)LA ESV INDEX (BP)23.10 mL/m2 PWs1.5 cm Deformation Strain Apical 423.0 % Apical 220.0 % Apical 316.0 % Global Humxgz31.0 % M-Mode Dimensions EPSS0.5 cm Aortic Valve AoV VTI0.4 mAo Mean GR7.0 mmHgLVOT VTI0.31 m JOSE LUIS (VMAX)3.3 cm2AVA (VTI) 3.3 cm2 Mitral Valve MV E Vmax56.8 cm/sDECEL Ondy306 ms MV A Vmax36.9 cm/sP 1/2 T48 ms E/A ratio1.5MVA (PHT)4.6 cm2 MR Max PG26 mmHg TDI E/E' Medial9.3E/E' Lateral9.2 Medial E' Peak V6.10 cm/sLateral E' Peak V6.20 cm/s Pulmonary Valve PV VTI0.19 mPV Mean GR2 mmHg Tricuspid Valve RAP (EST) 8 mmHgRVSP8.0 mmHg Left Ventricle The left ventricle is normal size. There is normal left ventricular wall thickness. LVEF is 60-65%. T he left ventricular diastolic function is normal. Right Ventricle The right ventricle is normal size. The right ventricular systolic function is normal. Atria The left atrium size is normal. The right atrium size is normal. Aortic Valve The aortic valve is normal in structure. Aortic valve leaflets appear thickened open well. There is n o aortic valvular stenosis. Mitral Valve The mitral valve is normal in structure. There is trace of mitral valve regurgitation noted. There is no mitral valve stenosis. Tricuspid Valve The tricuspid valve is normal in structure. There is no tricuspid valve regurgitation noted. Pulmonic Valve The pulmonary valve is normal in structure. There is no pulmonic valvular regurgitation. Great Vessels The aortic root is normal in size. The IVC is normal in size and collapses <50% with inspiration. Pericardium There is no pericardial effusion. Other Information Quality : Adequate Conclusion The left ventricle is normal size. LVEF is 60-65%. The left ventricular diastolic function is normal. The right ventricle is normal size. The right ventricular systolic function is normal. The left atrium size is normal. The right atrium size is normal. Aortic valve leaflets appear thickened open well. There is no pericardial effusion.
--- NOTE | 2024-02-19 16:36 | CONS ---
[facility] CONSULTATION NOTE Date Patient Seen: Feb 19, 2024 Time of Visit: 16:30 Reason for Consultation: [ ] History of Present Illness: [ Patient is a 78 years old man with dementia and nonverbal, HTN and seizures who is brought in by family due to poor appetite, confusion, cough and fever. Symptoms started a few days ago. He is found to be dehydrated in setting of Influenza. History taken from family and chart. As per family, patient not being like himself. No diarrhea or seizures. Trop slightly increased. Cardiology consulted. ] PAST MEDICAL HX: dementia, seizures, hyperlipidemia, hypertension PAST SURGICAL HX: right hip fracture SOCIAL HISTORY: No tobacco, ETOH, or illicit drug use Coded Allergies: No Known Drug Allergies (Verified Allergy, Unknown, 05/08/20) Habits: [Never] smoker. [Denies] alcohol consumption. [Denies] illicit drug use Home Meds: [ ] Current Meds: [ ] Review of Systems: unable to obtain due to dementia Physical Examination: GENERAL: [No acute distress.] HEAD: [Normal with no signs of head trauma.] EYES: [PERRLA, EOMI, conjunctiva and sclera normal.] ENT: [Hearing grossly intact, normal oropharynx.] NECK: [Supple without JVD. There is no tenderness, lymphadenopathy, or masses. No thyromegaly. Normal carotid upstrokes without bruits.] LUNGS: [Clear breath sounds bilaterally. There are right basilar rales one third of the way up the chest. No wheezes, or rhonchi.] HEART: [Normal rate and rhythm. Normal S1 and S2 without mumurs, gallop or rub.] VASC: [Peripheral pulses +2 bilaterally.] ABD: [Bowel sounds normal, soft, nontender, no masses, no organomegaly. No audible bruits.] : [Not examined] LYMPH: [No lymphadenopathy noted.] EXT: [No clubbing, cyanosis or edema.] SKIN: [No rashes or lesions noted.] NEURO: [Awake, alert, and oriented x3. No focal sensory or strength deficits noted.] Vital Signs (last 8hr) Date Time Temp Pulse Resp B/P (MAP) Pulse Ox O2 Delivery O2 Flow Rate FiO2 02/19/24 12:00 97.9 62 18 143/67 99 Nasal Cannula 2.0 02/19/24 11:15 61 18 02/19/24 11:00 N/C Nasal Cannula 02/19/24 11:00 N/C Nasal Cannula Laboratory: [ ] Hematology Labs: Test 02/19/24 04:30 02/18/24 11:09 Range/Units White Blood Count 9.8 4.8-10.8 K/uL Red Blood Count 4.05 L 4.50-6.20 MIL/uL Hemoglobin 11.9 L 14.0-18.0 g/dL Hematocrit 36.2 L 42-54 % Mean Corpuscular Volume 89.4 79-99 fL Mean Corpuscular Hemoglobin 29.4 27.0-33.0 pg Mean Corpuscular Hemoglobin Concent 32.9 32.0-36.0 g/dL Red Cell Distribution Width 14.4 11.0-15.5 % Platelet Count 94 L 130-400 K/uL Mean Platelet Volume 11.1 H 7.5-10.5 fL Nucleated Red Blood Cells 0.0 0.0-0.19 % Immature Granulocyte % (Auto) 0.9 0-1 % Neutrophils (%) (Auto) 77.9 H 40.0-77.0 % Lymphocytes (%) (Auto) 8.4 L 21.0-51.0 % Monocytes (%) (Auto) 12.7 3.0-13.0 % Eosinophils (%) (Auto) 0.0 0.0-8.0 % Basophils (%) (Auto) 0.1 0.0-5.0 % Neutrophils # (Auto) 9.2 H 1.8-7.7 K/uL Lymphocytes # (Auto) 1.0 1.0-4.8 K/uL Monocytes # (Auto) 1.5 H 0.1-1.0 K/uL Eosinophils # (Auto) 0.00 0.00-0.70 K/uL Basophils # (Auto) 0.01 0.00-0.20 K/uL Absolute Immature Granulocyte (auto 0.10 0-1 K/uL White Cell Morphology Comment See comments Chemistry Labs: Test 02/19/24 12:15 02/19/24 05:46 02/19/24 04:30 02/18/24 12:58 Range/Units Total Creatine Kinase 759 #*H 21-232 U/L Troponin I High Sensitivity 44.7 4-75 ng/L Whole Blood Glucose 84 70-110 MG/DL Sodium Level 143 136-145 mmol/L Potassium Level 3.9 3.5-5.1 mmol/L Chloride Level 107 101-111 mmol/L Carbon Dioxide Level 25 21-32 mmol/L Blood Urea Nitrogen 25 H 7-18 mg/dL Creatinine 0.8 0.5-1.3 mg/dL Glomerular Filtration Rate Calc 90 >90 mL/min Random Glucose 100 70-105 mg/dL Hemoglobin A1c 6.0 4.0-6.0 % Estimated Average Glucose (eAG) 126 70-126 mg/dL Lactic Acid Level 2.0 0.8-2.5 mmol/L Total Calcium 8.6 8.5-10.1 mg/dL Phosphorus Level 3.2 2.5-4.9 mg/dL Magnesium Level 2.00 1.80-2.40 mg/dL Total Bilirubin 1.0 0.2-1.0 mg/dL Aspartate Amino Transf (AST/SGOT) 58 H 10-37 U/L Alanine Aminotransferase (ALT/SGPT) 29 12-78 U/L Alkaline Phosphatase 63 50-136 U/L Ammonia 12 11-32 umol/L Total Protein 6.3 6.0-8.3 g/dL Albumin 2.5 L 3.5-5.0 g/dL Triglycerides Level 47 30-200 mg/dL Cholesterol Level 103 <200 mg/dL LDL Cholesterol 39 0-99 mg/dL HDL Cholesterol 55 29-71 mg/dL Thyroid Stimulating Hormone (TSH) 1.08 0.36-3.74 uIU/mL Procalcitonin 4.08 H 0.05-0.5 ng/mL Coagulation Labs: Test 02/19/24 04:30 Range/Units Prothrombin Time 11.2 9.6-11.6 SEC Prothromb Time International Ratio 1.04 0.85-1.15 Activated Partial Thromboplast Time 32.5 26.3-35.5 SEC Diagnostics / Radiology: [Copy/Paste Echos/Imaging Report here] Assessment: [ Systemic inflammatory response syndrome on admission Acute early sepsis without septic shock Acute hypoxic respiratory failure on admission Left lower lobe pneumonia on admission, community acquired Influenza A viral infection on admission Dementia with acute encephalopathy on admission Seizures disorder Hypertension Acute non STEMI type 2 secondary to metabolic demand Hyperlipidemia Acute dehydration on admission with acute kidney injury on top of CK ] Plan: [#Elevated troponin due to type II NSTEMI in setting of dehydration and influenza -No need to trend troponin as it has downtrended. -2d echo is normal -ECG no ST-T changes #HTN -stopped metoprolol due to borderline low HR -started losartan 25 mg bid #Dehydration -getting 50 cc/hr of IVFs, recheck CK tomorrow at 9 am Thank you for the consult, I will sign off. Lindy Felder MD ] LINDY FELDER MD Feb 19, 2024 16:36
[2024-02-19] MEDS: LACTATED RINGERS 1000ML 1,000 ML IV SCH (18:16)
[2024-02-19] MEDS: OSELTAMIVIR PHOSPHATE 75 MG CAP PO SCH (19:46)
[2024-02-19] MEDS: LoSARTan 25 MG TABLET PO SCH (20:46)
[2024-02-19] MEDS: SODIUM CHLORIDE 3% FOR INHALATION 4 ML/AMP VIAL.NEB IH ONE (23:16)
[2024-02-20] VITALS (12 sets, daily range): BP systolic 114–156; BP diastolic 38–85; PULSE 57–82; RESP 16–18; TEMP 97.8–98.9; O2SAT 93–97
[2024-02-20] MEDS: PANTOPrazole 40 MG/VIAL IVP SCH (02:30)
[2024-02-20 06:01] LABS: BASOPHILS # (AUTO) 0.02 K/uL (0.00-0.20); BASOPHILS % (AUTO) 0.3 % (0.0-5.0); EOSINOPHILS # (AUTO) 0.01 K/uL (0.00-0.70); EOSINOPHILS % (AUTO) 0.2 % (0.0-8.0); HEMATOCRIT 33.1 % (42-54); IMMATURE GRANULOCYTE ABSOLUTE 0.02 K/uL (0-1); MEAN CORPUSCULAR HGB CONC 33.2 g/dL (32.0-36.0); MEAN CORPUSCULAR VOLUME 90.2 fL (79-99); MONOCYTES # (AUTO) 0.6 K/uL (0.1-1.0); MONOCYTES % (AUTO) 8.6 % (3.0-13.0); NEUTROPHILS # (AUTO) 4.8 K/uL (1.8-7.7); NEUTROPHILS % (AUTO) 74.6 % (40.0-77.0); PLATELET COUNT (AUTO) 93 K/uL (130-400); RED BLOOD CELL COUNT(AUTO) 3.67 MIL/uL (4.50-6.20); RED CELL DISTRIBUTION WIDTH 14.5 % (11.0-15.5); WHITE BLOOD COUNT (AUTO) 6.4 K/uL (4.8-10.8)
[2024-02-20 06:15] LABS: ALBUMIN 2.4 g/dL (3.5-5.0); BILIRUBIN,TOTAL 0.8 mg/dL (0.2-1.0); CREATININE 0.7 mg/dL (0.5-1.3); POTASSIUM 3.8 mmol/L (3.5-5.1); TOTAL PROTEIN, SERUM 5.8 g/dL (6.0-8.3)
[2024-02-20] MEDS: SODIUM CHLORIDE 3% FOR INHALATION 4 ML/AMP VIAL.NEB IH ONE ×2 (06:34→11:09)
[2024-02-20 06:35] LABS: B-TYPE NATRIURETIC PEPTIDE 185 pg/mL (0-100)
--- NOTE | 2024-02-20 08:53 | HMCIMG ---
Exam Type: CHEST 1VW Clinical Information: hypoxia Comparison: None Findings: Ill-defined infiltrates of both lungs are seen consistent with bilateral pneumonia. . The heart is normal in size. The bony and soft tissue structures show no worrisome pathology. IMPRESSION: Findings consistent with pneumonia. Follow-up is advised.
--- NOTE | 2024-02-20 10:34 | PN ---
[facility] PROGRESS NOTE Date Patient Seen: Feb 20, 2024 Time of Visit: 10:33 Supervising Physician: Dr. Moreland PROBLEM LIST: Sepsis, present on admission Acute hypoxic respiratory failure, present on admission Community acquired pneumonia, bacterial Influenza A viral infection on admission Acute kidney injury, resolved Acute dehydration, resolved Elevated CK Dementia with acute encephalopathy on admission Seizures disorder Hypertension Acute non STEMI type 2 secondary to metabolic demand Hyperlipidemia Hypertension Preserved EF 60-65% per echocardiogram 02/19/2024 INTERVAL HISTORY: Pt remains weak at this point. Currently stable on room air. Temp and BP are stable Continues on IV abx (Day 3) and Tamiflu (Day 2) Denies any headache or dizziness. Denies any chest pain or palpitations. Denies any cough or shortness of breath at rest. Denies any nausea, vomiting, abdominal pain, or melena REVIEW OF SYSTEMS: 12 point ROS reviewed with patient. Pertinent positives mentioned above, otherwise negative PHYSICAL EXAM: GENERAL: alert, weak, awake oriented x 1 HEENT: EOMI, Sclera non icteric, moist mucosa NECK: Supple, no JVD, trachea midline LUNGS: decreased breath sounds, no wheezing HEART: Regular rate and rhythm. Normal S1 and S2, without murmurs ABD: Abdomen soft, nontender. Bowel sounds present EXT: No clubbing cyanosis or edema NEURO: Alert and oriented to person, follows commands Vital Signs (last 8hr) Date Time Temp Pulse Resp B/P (MAP) Pulse Ox O2 Delivery O2 Flow Rate FiO2 02/20/24 08:00 99.0 63 16 137/69 69 Room Air 02/20/24 06:23 62 18 N/A Room Air 21 02/20/24 06:22 62 18 02/20/24 04:00 98.4 63 16 121/53 95 Room Air 21 LABS: Hematology Labs: Test 02/20/24 04:29 02/18/24 11:09 Range/Units White Blood Count 6.4 # 4.8-10.8 K/uL Red Blood Count 3.67 L 4.50-6.20 MIL/uL Hemoglobin 11.0 L 14.0-18.0 g/dL Hematocrit 33.1 L 42-54 % Mean Corpuscular Volume 90.2 79-99 fL Mean Corpuscular Hemoglobin 30.0 27.0-33.0 pg Mean Corpuscular Hemoglobin Concent 33.2 32.0-36.0 g/dL Red Cell Distribution Width 14.5 11.0-15.5 % Platelet Count 93 L 130-400 K/uL Mean Platelet Volume 11.7 H 7.5-10.5 fL Immature Granulocyte % (Auto) 0.3 0-1 % Neutrophils (%) (Auto) 74.6 40.0-77.0 % Lymphocytes (%) (Auto) 16.0 L 21.0-51.0 % Monocytes (%) (Auto) 8.6 3.0-13.0 % Eosinophils (%) (Auto) 0.2 0.0-8.0 % Basophils (%) (Auto) 0.3 0.0-5.0 % Neutrophils # (Auto) 4.8 1.8-7.7 K/uL Lymphocytes # (Auto) 1.0 1.0-4.8 K/uL Monocytes # (Auto) 0.6 0.1-1.0 K/uL Eosinophils # (Auto) 0.01 0.00-0.70 K/uL Basophils # (Auto) 0.02 0.00-0.20 K/uL Absolute Immature Granulocyte (auto 0.02 0-1 K/uL Nucleated Red Blood Cells 0.0 0.0-0.19 % White Cell Morphology Comment See comments Chemistry Labs: Test 02/20/24 09:14 02/20/24 04:29 02/19/24 19:00 02/19/24 05:46 Range/Units Total Creatine Kinase 787 *H 21-232 U/L Sodium Level 141 136-145 mmol/L Potassium Level 3.8 3.5-5.1 mmol/L Chloride Level 107 101-111 mmol/L Carbon Dioxide Level 30 21-32 mmol/L Blood Urea Nitrogen 25 H 7-18 mg/dL Creatinine 0.7 0.5-1.3 mg/dL Glomerular Filtration Rate Calc 94 >90 mL/min Random Glucose 85 70-105 mg/dL Total Calcium 8.4 L 8.5-10.1 mg/dL Total Bilirubin 0.8 0.2-1.0 mg/dL Aspartate Amino Transf (AST/SGOT) 150 H 10-37 U/L Alanine Aminotransferase (ALT/SGPT) 81 #H 12-78 U/L Alkaline Phosphatase 68 50-136 U/L B-Type Natriuretic Peptide 185 H 0-100 pg/mL Total Protein 5.8 L 6.0-8.3 g/dL Albumin 2.4 L 3.5-5.0 g/dL Procalcitonin 3.04 H 0.05-0.5 ng/mL Troponin I High Sensitivity 43.8 4-75 ng/L Whole Blood Glucose 84 70-110 MG/DL Test 02/19/24 04:30 Range/Units Hemoglobin A1c 6.0 4.0-6.0 % Estimated Average Glucose (eAG) 126 70-126 mg/dL Lactic Acid Level 2.0 0.8-2.5 mmol/L Phosphorus Level 3.2 2.5-4.9 mg/dL Magnesium Level 2.00 1.80-2.40 mg/dL Ammonia 12 11-32 umol/L Triglycerides Level 47 30-200 mg/dL Cholesterol Level 103 <200 mg/dL LDL Cholesterol 39 0-99 mg/dL HDL Cholesterol 55 29-71 mg/dL Thyroid Stimulating Hormone (TSH) 1.08 0.36-3.74 uIU/mL Coagulation Labs: Test 02/19/24 04:30 Range/Units Prothrombin Time 11.2 9.6-11.6 SEC Prothromb Time International Ratio 1.04 0.85-1.15 Activated Partial Thromboplast Time 32.5 26.3-35.5 SEC DIAGNOSTICS / RADIOLOGY RESULTS: Reviewed with supervising MD PLAN NEURO: Minimize central acting medications as possible. Maintain fall precautions, adequate lighting during the day PULMONARY: Supplemental 02 as needed. Maintain aspiration precautions at all times CARDIOVASCULAR: Follow hemodynamics. Vital signs per facility protocol GI & NUTRITION: Continue with nutritional support. Continue stool softeners and laxatives as needed. KIDNEYS & ELECTROLYTES: Strict monitoring of intake, output and overall fluid balance. Avoid nephrotoxic medications to the extent possible. Medications to be dosed according to renal function. Monitor electrolytes and replace as needed ENDOCRINE: Maintain blood glucose between 100-180 at all times. Hypoglycemia protocol in place INFECTIOUS DISEASE: Trend temperature, WBC and procalcitonin level Follow cultures, deescalate antibiotics as soon as possible. Panculture if new onset fever ONCOLOGY/HEMATOLOGY/COAGULATION: Monitor for s/s of bleeding Monitor hemoglobin, coagulation studies as needed SKIN: Pressure ulcer prevention per facility protocol Specialty mattress ORTHO/REHAB: Continue PT/OT Prophylaxis: Continue GI and DVT prophylaxis Code Status: Full Resuscitation Disposition: Home vs SNF Other: Total patient care time excluding any procedures: 40 min LIBERTAD PIZANO NP Feb 20, 2024 10:34
--- NOTE | 2024-02-20 14:45 | NUR ---
Patient seen and evaluated. No chair alarm pad available. Nurse Leonel and INSTRUCTIONAL SUPERVISOR were informed. Patient was sat up in chair with family present.
--- NOTE | 2024-02-20 14:56 | NUR ---
DCP- pending Pt in bed eyes closed. Rosales Tran at bedside [phone]. Son states pt is barbadian speaking lives with spouse Payal Tran [phone] in a house has a ramp available, walker, and wheelchair. Pt has provider services and [facility] with [facility]. Rosales shaa pt has been at [facility] spouse does not want pt to return to that facility however, will consider another skilled facility if needed. Son anticipates discharge plan is for Home vs SNF. Addendum: 02/20/24 at 1501 by VALORIE DENNEY RN CM Amended: Links added.
[2024-02-21] VITALS (13 sets, daily range): BP systolic 127–159; BP diastolic 59–81; PULSE 59–81; RESP 16–19; TEMP 97.6–98.9; O2SAT 91–97
--- NOTE | 2024-02-21 15:47 | PN ---
[facility] PROGRESS NOTE Date Patient Seen: Feb 21, 2024 Time of Visit: 15:45 Supervising Physician: WINSTON MALIK MD PROBLEM LIST: Sepsis, present on admission Acute hypoxic respiratory failure, present on admission Community acquired pneumonia, bacterial Influenza A viral infection on admission Acute kidney injury, resolved Acute dehydration, resolved Acute Rhabdomyolysis , statin on Hold Dementia with acute encephalopathy on admission Seizures disorder Hypertension Acute non STEMI type 2 secondary to metabolic demand Hyperlipidemia Hypertension Preserved EF 60-65% per echocardiogram 02/19/2024 INTERVAL HISTORY: Pt remains weak at this point. Currently stable on room air. Temp and BP are stable Continues on IV abx and Tamiflu. CK trending upward. now at 810 , LFts also elevated. Statin on Hold . Other medications reviewed as well will continue on IV fluids . and REassess in AM Daughter at bedside during my evaluation. REVIEW OF SYSTEMS: 12 point ROS reviewed with patient. Pertinent positives mentioned above, otherwise negative PHYSICAL EXAM: GENERAL: alert, weak, awake oriented x 1 HEENT: EOMI, Sclera non icteric, moist mucosa NECK: Supple, no JVD, trachea midline LUNGS: decreased breath sounds, no wheezing HEART: Regular rate and rhythm. Normal S1 and S2, without murmurs ABD: Abdomen soft, nontender. Bowel sounds present EXT: No clubbing cyanosis or edema NEURO: Alert and oriented to person, follows commands Vital Signs (last 8hr) Date Time Temp Pulse Resp B/P (MAP) Pulse Ox O2 Delivery O2 Flow Rate FiO2 02/21/24 11:54 97.9 65 18 140/79 97 Room Air 21 02/21/24 11:50 71 18 02/21/24 11:49 71 18 N/A Room Air 21 LABS: Hematology Labs: Test 02/20/24 04:29 Range/Units White Blood Count 6.4 # 4.8-10.8 K/uL Red Blood Count 3.67 L 4.50-6.20 MIL/uL Hemoglobin 11.0 L 14.0-18.0 g/dL Hematocrit 33.1 L 42-54 % Mean Corpuscular Volume 90.2 79-99 fL Mean Corpuscular Hemoglobin 30.0 27.0-33.0 pg Mean Corpuscular Hemoglobin Concent 33.2 32.0-36.0 g/dL Red Cell Distribution Width 14.5 11.0-15.5 % Platelet Count 93 L 130-400 K/uL Mean Platelet Volume 11.7 H 7.5-10.5 fL Immature Granulocyte % (Auto) 0.3 0-1 % Neutrophils (%) (Auto) 74.6 40.0-77.0 % Lymphocytes (%) (Auto) 16.0 L 21.0-51.0 % Monocytes (%) (Auto) 8.6 3.0-13.0 % Eosinophils (%) (Auto) 0.2 0.0-8.0 % Basophils (%) (Auto) 0.3 0.0-5.0 % Neutrophils # (Auto) 4.8 1.8-7.7 K/uL Lymphocytes # (Auto) 1.0 1.0-4.8 K/uL Monocytes # (Auto) 0.6 0.1-1.0 K/uL Eosinophils # (Auto) 0.01 0.00-0.70 K/uL Basophils # (Auto) 0.02 0.00-0.20 K/uL Absolute Immature Granulocyte (auto 0.02 0-1 K/uL Nucleated Red Blood Cells 0.0 0.0-0.19 % Chemistry Labs: Test 02/21/24 06:24 02/20/24 04:29 02/19/24 19:00 Range/Units Total Creatine Kinase 840 *H 21-232 U/L Sodium Level 141 136-145 mmol/L Potassium Level 3.8 3.5-5.1 mmol/L Chloride Level 107 101-111 mmol/L Carbon Dioxide Level 30 21-32 mmol/L Blood Urea Nitrogen 25 H 7-18 mg/dL Creatinine 0.7 0.5-1.3 mg/dL Glomerular Filtration Rate Calc 94 >90 mL/min Random Glucose 85 70-105 mg/dL Total Calcium 8.4 L 8.5-10.1 mg/dL Total Bilirubin 0.8 0.2-1.0 mg/dL Aspartate Amino Transf (AST/SGOT) 150 H 10-37 U/L Alanine Aminotransferase (ALT/SGPT) 81 #H 12-78 U/L Alkaline Phosphatase 68 50-136 U/L B-Type Natriuretic Peptide 185 H 0-100 pg/mL Total Protein 5.8 L 6.0-8.3 g/dL Albumin 2.4 L 3.5-5.0 g/dL Procalcitonin 3.04 H 0.05-0.5 ng/mL Troponin I High Sensitivity 43.8 4-75 ng/L DIAGNOSTICS / RADIOLOGY RESULTS: [ ] PLAN NEURO: Minimize central acting medications as possible. Maintain fall precautions, adequate lighting during the day PULMONARY: Supplemental 02 as needed. Maintain aspiration precautions at all times CARDIOVASCULAR: Follow hemodynamics. Vital signs per facility protocol GI & NUTRITION: Continue with nutritional support. Continue stool softeners and laxatives as needed. KIDNEYS & ELECTROLYTES: Strict monitoring of intake, output and overall fluid balance. Avoid nephrotoxic medications to the extent possible. Medications to be dosed according to renal function. Monitor electrolytes and replace as needed CK in AM , IV flulids . Hold statin ENDOCRINE: Maintain blood glucose between 100-180 at all times. Hypoglycemia protocol in place INFECTIOUS DISEASE: Trend temperature, WBC and procalcitonin level Follow cultures, deescalate antibiotics as soon as possible. Panculture if new onset fever ONCOLOGY/HEMATOLOGY/COAGULATION: Monitor for s/s of bleeding Monitor hemoglobin, coagulation studies as needed SKIN: Pressure ulcer prevention per facility protocol Specialty mattress ORTHO/REHAB: Continue PT/OT Prophylaxis: Continue GI and DVT prophylaxis Code Status: Full Resuscitation Disposition: Home vs SNF Other: Total patient care time excluding any procedures: 40 min CLINTON SÁNCHEZ Feb 21, 2024 15:47
--- NOTE | 2024-02-21 16:53 | NUR ---
[facility] Consult: Patient assessed by wound healing team. Patient with low cole score with no wounds noted. Assessment and recommendations provided to primary nurse. Education provided. Addendum: 02/21/24 at 1654 by MICHELLE FUENTES RN RN/ Amended: Links added.
[2024-02-22] VITALS (14 sets, daily range): BP systolic 107–178; BP diastolic 57–76; PULSE 51–104; RESP 16–21; TEMP 97.6–98.8; O2SAT 94–99
[2024-02-22 05:34] LABS: BASOPHILS # (AUTO) 0.02 K/uL (0.00-0.20); BASOPHILS % (AUTO) 0.4 % (0.0-5.0); EOSINOPHILS # (AUTO) 0.05 K/uL (0.00-0.70); EOSINOPHILS % (AUTO) 1.1 % (0.0-8.0); HEMATOCRIT 32.3 % (42-54); IMMATURE GRANULOCYTE ABSOLUTE 0.03 K/uL (0-1); LYMPHOCYTES # (AUTO) 1.3 K/uL (1.0-4.8); LYMPHOCYTES % (AUTO) 28.3 % (21.0-51.0); MEAN CORPUSCULAR HEMOGLOBIN 29.9 pg (27.0-33.0); MEAN CORPUSCULAR HGB CONC 34.4 g/dL (32.0-36.0); MEAN CORPUSCULAR VOLUME 87.1 fL (79-99); MONOCYTES # (AUTO) 0.5 K/uL (0.1-1.0); MONOCYTES % (AUTO) 10.8 % (3.0-13.0); NEUTROPHILS # (AUTO) 2.6 K/uL (1.8-7.7); NEUTROPHILS % (AUTO) 58.7 % (40.0-77.0); PLATELET COUNT (AUTO) 141 K/uL (130-400); RED BLOOD CELL COUNT(AUTO) 3.71 MIL/uL (4.50-6.20); RED CELL DISTRIBUTION WIDTH 13.7 % (11.0-15.5); WHITE BLOOD COUNT (AUTO) 4.5 K/uL (4.8-10.8)
[2024-02-22 06:18] LABS: ALBUMIN 2.3 g/dL (3.5-5.0); BILIRUBIN,TOTAL 1.2 mg/dL (0.2-1.0); CREATININE 0.6 mg/dL (0.5-1.3); POTASSIUM 3.4 mmol/L (3.5-5.1); TOTAL PROTEIN, SERUM 6.4 g/dL (6.0-8.3)
[2024-02-22 07:33] LABS: BAND NEUTROPHILS % (MANUAL) 2 % (0-2); LYMPHOCYTES % (MANUAL) 32 % (22-44); MAN.DIFF COMMENT-IMPRESSION MANUAL DIFFERENTIAL; MONOCYTES % (MANUAL) 6 % (2-9); PLATELET MORPHOLOGY COMMENT DECREASED; SEGMENTED NEUTROPHILS % 60 % (40-70); TOTAL CELLS COUNTED 50; WBC MORPHOLOGY NORMAL
[2024-02-22] MEDS ORDERED: hydrALAZine 20MG/ML VIAL IV PRN (08:30)
--- NOTE | 2024-02-22 12:59 | PN ---
[facility] PROGRESS NOTE Date Patient Seen: Feb 22, 2024 Time of Visit: 12:52 Supervising Physician: Dr Moreland PROBLEM LIST: Sepsis, present on admission Acute hypoxic respiratory failure, present on admission Community acquired pneumonia, bacterial Influenza A viral infection on admission Acute kidney injury, resolved Acute dehydration, resolved Acute Rhabdomyolysis , statin on Hold Dementia with acute encephalopathy on admission Seizures disorder Hypertension Acute non STEMI type 2 secondary to metabolic demand Hyperlipidemia Hypertension Preserved EF 60-65% per echocardiogram 02/19/2024 Plan Summary: Supplemental oxygen as needed Wean off as tolerates Continue Tamiflu Continue Rocephin Continue Zmax Trend CK Continue IV fluids Trend LFTs daily Obtain ABD US INTERVAL HISTORY: 78 years old man brought in by family due to poor appetite, confusion, cough and fever Symptoms started a few days ago Patient suffers from dementia and is non verbal, most of the information obtained by family As per family, patient not being like himself No diarrhea No seizures No nausea or vomiting 02/20 - Pt remains weak at this point. Currently stable on room air. Temp and BP are stable Continues on IV abx and Tamiflu. CK trending upward. now at 810 , LFts also elevated. Statin on Hold . Other medications reviewed as well will continue on IV fluids . and REassess in AM Daughter at bedside during my evaluation. 02/21 - Patient is seen and evaluated at the bedside. Pt continues to be very weak, deconditioned and debilitated. Pt remains on room air with no signs of dyspnea. LFTs remain elevated therefore will obtain an abd US. Patient's CK trending downward. Will continue IV fluids for now. Pt to continue IV abts. Will repeat CXR to evaluate pneumonia. REVIEW OF SYSTEMS: 12 point ROS reviewed with patient. Pertinent positives mentioned above, otherwise negative PHYSICAL EXAM: GENERAL: alert, weak, awake oriented x 1 HEENT: EOMI, Sclera non icteric, moist mucosa NECK: Supple, no JVD, trachea midline LUNGS: decreased breath sounds, no wheezing HEART: Regular rate and rhythm. Normal S1 and S2, without murmurs ABD: Abdomen soft, nontender. Bowel sounds present EXT: No clubbing cyanosis or edema NEURO: Alert and oriented to person, follows commands Vital Signs (last 8hr) Date Time Temp Pulse Resp B/P (MAP) Pulse Ox O2 Delivery O2 Flow Rate FiO2 02/22/24 11:25 98.1 88 18 158/65 99 Room Air 21 12/17/24 11:15 71 16 02/22/24 09:48 55 176/64 02/22/24 07:30 97 Room Air* 0 21 02/22/24 07:15 97.9 51 18 178/66 97 Room Air 02/22/24 06:44 70 18 N/A Room Air 02/22/24 06:43 70 16 LABS: Hematology Labs: Test 02/22/24 05:15 Range/Units White Blood Count 4.5 L 4.8-10.8 K/uL Red Blood Count 3.71 L 4.50-6.20 MIL/uL Hemoglobin 11.1 L 14.0-18.0 g/dL Hematocrit 32.3 L 42-54 % Mean Corpuscular Volume 87.1 79-99 fL Mean Corpuscular Hemoglobin 29.9 27.0-33.0 pg Mean Corpuscular Hemoglobin Concent 34.4 32.0-36.0 g/dL Red Cell Distribution Width 13.7 11.0-15.5 % Platelet Count 141 # 130-400 K/uL Mean Platelet Volume 10.0 7.5-10.5 fL Immature Granulocyte % (Auto) 0.7 0-1 % Neutrophils (%) (Auto) 58.7 40.0-77.0 % Lymphocytes (%) (Auto) 28.3 21.0-51.0 % Monocytes (%) (Auto) 10.8 3.0-13.0 % Eosinophils (%) (Auto) 1.1 0.0-8.0 % Basophils (%) (Auto) 0.4 0.0-5.0 % Neutrophils # (Auto) 2.6 1.8-7.7 K/uL Lymphocytes # (Auto) 1.3 1.0-4.8 K/uL Monocytes # (Auto) 0.5 0.1-1.0 K/uL Eosinophils # (Auto) 0.05 0.00-0.70 K/uL Basophils # (Auto) 0.02 0.00-0.20 K/uL Absolute Immature Granulocyte (auto 0.03 0-1 K/uL Segmented Neutrophils % 60 40-70 % Band Neutrophils % 2 0-2 % Lymphocytes % (Manual) 32 22-44 % Monocytes % (Manual) 6 2-9 % Nucleated Red Blood Cells 0.0 0.0-0.19 % Differential Comment MANUAL DIFFERENTIAL White Cell Morphology Comment NORMAL Platelet Morphology Comment DECREASED Red Blood Cell Morphology ANISO 2+ Chemistry Labs: Test 02/22/24 05:15 Range/Units Sodium Level 144 136-145 mmol/L Potassium Level 3.4 L 3.5-5.1 mmol/L Chloride Level 107 101-111 mmol/L Carbon Dioxide Level 26 21-32 mmol/L Blood Urea Nitrogen 14 7-18 mg/dL Creatinine 0.6 0.5-1.3 mg/dL Glomerular Filtration Rate Calc 98 >90 mL/min Random Glucose 86 70-105 mg/dL Total Calcium 8.7 8.5-10.1 mg/dL Magnesium Level 2.00 1.80-2.40 mg/dL Total Bilirubin 1.2 H 0.2-1.0 mg/dL Aspartate Amino Transf (AST/SGOT) 238 H 10-37 U/L Alanine Aminotransferase (ALT/SGPT) 246 H 12-78 U/L Alkaline Phosphatase 151 H 50-136 U/L Total Creatine Kinase 294 #H 21-232 U/L Total Protein 6.4 6.0-8.3 g/dL Albumin 2.3 L 3.5-5.0 g/dL DIAGNOSTICS / RADIOLOGY RESULTS: [ ] PLAN NEURO: Minimize central acting medications as possible. Maintain fall precautions, adequate lighting during the day PULMONARY: Supplemental 02 as needed. Maintain aspiration precautions at all times CARDIOVASCULAR: Follow hemodynamics. Vital signs per facility protocol GI & NUTRITION: Continue with nutritional support. Continue stool softeners and laxatives as needed. KIDNEYS & ELECTROLYTES: Strict monitoring of intake, output and overall fluid balance. Avoid nephrotoxic medications to the extent possible. Medications to be dosed according to renal function. Monitor electrolytes and replace as needed CK in AM , IV flulids . Hold statin ENDOCRINE: Maintain blood glucose between 100-180 at all times. Hypoglycemia protocol in place INFECTIOUS DISEASE: Trend temperature, WBC and procalcitonin level Follow cultures, deescalate antibiotics as soon as possible. Panculture if new onset fever ONCOLOGY/HEMATOLOGY/COAGULATION: Monitor for s/s of bleeding Monitor hemoglobin, coagulation studies as needed SKIN: Pressure ulcer prevention per facility protocol Specialty mattress ORTHO/REHAB: Continue PT/OT Prophylaxis: Continue GI and DVT prophylaxis Code Status: Full Resuscitation Disposition: Home vs SNF Other: Total patient care time excluding any procedures: 40 min ATTESTATION BY PHYSICIAN I reviewed the documentation, medical decision making, and treatment plan as noted by the mid-level provider above. I agree with the findings and plan of care. Andrew Moreland MD, ECTOR N NP Feb 22, 2024 12:59
--- NOTE | 2024-02-22 21:00 | NUR ---
PM ASSESSMENT. PATIENT AWAKE AND CONFUSED, PATIENT REFUSING MEDICATIONS AT THIS TIME. RESP EVEN AND UNLABORED. NO SOB NOTED. ON ROOM AIR. REPOSITIONED FOR COMFORT. TOTAL CARE RENDERED Q2H AND PRN. HOB ELEVATED. CALL LIGHT WITHIN REACH. NO SIGNS OF DISTRESS NOTED UPON EXITING THE ROOM. Addendum: 02/22/24 at 2135 by DINO WOODARD RN RN Amended: Links added.
[2024-02-23] VITALS (14 sets, daily range): BP systolic 121–167; BP diastolic 57–87; PULSE 63–94; RESP 16–19; TEMP 97.8–98.9; O2SAT 94–98
[2024-02-23 04:26] LABS: BASOPHILS # (AUTO) 0.02 K/uL (0.00-0.20); BASOPHILS % (AUTO) 0.3 % (0.0-5.0); EOSINOPHILS # (AUTO) 0.01 K/uL (0.00-0.70); EOSINOPHILS % (AUTO) 0.2 % (0.0-8.0); HEMATOCRIT 31.3 % (42-54); IMMATURE GRANULOCYTE ABSOLUTE 0.05 K/uL (0-1); LYMPHOCYTES # (AUTO) 1.1 K/uL (1.0-4.8); LYMPHOCYTES % (AUTO) 17.3 % (21.0-51.0); MEAN CORPUSCULAR HEMOGLOBIN 29.4 pg (27.0-33.0); MEAN CORPUSCULAR HGB CONC 34.2 g/dL (32.0-36.0); MONOCYTES # (AUTO) 0.6 K/uL (0.1-1.0); MONOCYTES % (AUTO) 9.6 % (3.0-13.0); NEUTROPHILS # (AUTO) 4.4 K/uL (1.8-7.7); NEUTROPHILS % (AUTO) 71.8 % (40.0-77.0); PLATELET COUNT (AUTO) 183 K/uL (130-400); RED BLOOD CELL COUNT(AUTO) 3.64 MIL/uL (4.50-6.20); RED CELL DISTRIBUTION WIDTH 13.5 % (11.0-15.5); WHITE BLOOD COUNT (AUTO) 6.2 K/uL (4.8-10.8)
[2024-02-23 04:47] LABS: ALBUMIN 2.5 g/dL (3.5-5.0); BILIRUBIN,DIRECT 0.2 mg/dL (0.0-0.3); BILIRUBIN,TOTAL 0.8 mg/dL (0.2-1.0); CREATININE 0.7 mg/dL (0.5-1.3); MAGNESIUM 1.9 mg/dL (1.80-2.40); PHOSPHORUS 3.2 mg/dL (2.5-4.9); POTASSIUM 3.5 mmol/L (3.5-5.1); TOTAL PROTEIN, SERUM 6.4 g/dL (6.0-8.3)
[2024-02-23] MEDS: MAGNESIUM 2GM PREMIX 50ML 50 ML IV PRN (05:28)
--- NOTE | 2024-02-23 09:09 | HMCIMG ---
US ABDOMINAL RUQ\E\LTD HISTORY: Elevated liver function tests COMPARISON: None TECHNIQUE: Right upper quadrant abdominal ultrasound study was performed. FINDINGS: Liver measures 12 cm. The visualized portion of the pancreas is within normal limits. Liver is echogenic consistent with liver parenchymal disease. Gallstones are seen in the gallbladder. Common duct measures 2 mm. No evidence of gallbladder wall thickening is seen. Right kidney measures 9 x 4 x 6 cm. No hydronephrosis is seen of the right kidney. IMPRESSION: 1. Gallstones. No ductal dilatation is seen. 2. No hydronephrosis is seen.
--- NOTE | 2024-02-23 09:28 | HMCIMG ---
CHEST 1VW HISTORY: Pneumonia COMPARISON: 02/20/2024 FINDINGS: A frontal projection of the chest was obtained. Mild bilateral pulmonary infiltrates are seen. The heart is borderline enlarged. Degenerative changes are seen. Aortic calcifications are seen. IMPRESSION: 1. Mild bilateral pulmonary infiltrates.
--- NOTE | 2024-02-23 12:02 | PN ---
[facility] PROGRESS NOTE Date Patient Seen: Feb 23, 2024 Time of Visit: 11:58 Supervising Physician: Ashleigh Goldstein PROBLEM LIST: Sepsis, present on admission Acute hypoxic respiratory failure, present on admission Community acquired pneumonia, bacterial Influenza A viral infection on admission Acute kidney injury, resolved Acute dehydration, resolved Acute Rhabdomyolysis , statin on Hold Dementia with acute encephalopathy on admission Seizures disorder Hypertension Acute non STEMI type 2 secondary to metabolic demand Hyperlipidemia Hypertension Preserved EF 60-65% per echocardiogram 02/19/2024 Plan Summary: Supplemental oxygen as needed Wean off as tolerates Continue Tamiflu Continue Rocephin Continue Zmax Trend CK Continue IV fluids Trend LFTs daily CM for discharge planning INTERVAL HISTORY: 78 years old man brought in by family due to poor appetite, confusion, cough and fever Symptoms started a few days ago Patient suffers from dementia and is non verbal, most of the information obtained by family As per family, patient not being like himself No diarrhea No seizures No nausea or vomiting 02/20 - Pt remains weak at this point. Currently stable on room air. Temp and BP are stable Continues on IV abx and Tamiflu. CK trending upward. now at 810 , LFts also elevated. Statin on Hold . Other medications reviewed as well will continue on IV fluids . and REassess in AM Daughter at bedside during my evaluation. 02/21 - Patient is seen and evaluated at the bedside. Pt continues to be very weak, deconditioned and debilitated. Pt remains on room air with no signs of dyspnea. LFTs remain elevated therefore will obtain an abd US. Patient's CK trending downward. Will continue IV fluids for now. Pt to continue IV abts. Will repeat CXR to evaluate pneumonia. 02/22 - patient is seen and evaluated at the bedside. Patient is lying in bed continues to be very weak, deconditioned and debilitated. Patient remains on room air and denies dyspnea at this time. Patient's LFTs trending downward. Patient did have an abdominal ultrasound which showed gallstones however no CBD dilatation. Patient had a chest x-ray which shows pulmonary infiltrates are improving. We will continue current antibiotic treatment. We will reach out to family regarding discharge planning as patient would benefit from SNF placement. REVIEW OF SYSTEMS: 12 point ROS reviewed with patient. Pertinent positives mentioned above, otherwise negative PHYSICAL EXAM: GENERAL: alert, weak, awake oriented x 1 HEENT: EOMI, Sclera non icteric, moist mucosa NECK: Supple, no JVD, trachea midline LUNGS: decreased breath sounds, no wheezing HEART: Regular rate and rhythm. Normal S1 and S2, without murmurs ABD: Abdomen soft, nontender. Bowel sounds present EXT: No clubbing cyanosis or edema NEURO: Alert and oriented to person, follows commands Vital Signs (last 8hr) Date Time Temp Pulse Resp B/P (MAP) Pulse Ox O2 Delivery O2 Flow Rate FiO2 02/23/24 11:10 84 18 02/23/24 11:10 84 18 N/A Room Air 21 02/23/24 08:18 97.9 79 17 154/87 96 Room Air 02/23/24 06:20 77 18 N/A Room Air 21 02/23/24 06:18 77 18 02/23/24 04:00 99.0 89 16 160/78 95 Room Air LABS: Hematology Labs: Test 02/23/24 04:15 02/22/24 05:15 Range/Units White Blood Count 6.2 # 4.8-10.8 K/uL Red Blood Count 3.64 L 4.50-6.20 MIL/uL Hemoglobin 10.7 L 14.0-18.0 g/dL Hematocrit 31.3 L 42-54 % Mean Corpuscular Volume 86.0 79-99 fL Mean Corpuscular Hemoglobin 29.4 27.0-33.0 pg Mean Corpuscular Hemoglobin Concent 34.2 32.0-36.0 g/dL Red Cell Distribution Width 13.5 11.0-15.5 % Platelet Count 183 # 130-400 K/uL Mean Platelet Volume 10.2 7.5-10.5 fL Immature Granulocyte % (Auto) 0.8 0-1 % Neutrophils (%) (Auto) 71.8 40.0-77.0 % Lymphocytes (%) (Auto) 17.3 L 21.0-51.0 % Monocytes (%) (Auto) 9.6 3.0-13.0 % Eosinophils (%) (Auto) 0.2 0.0-8.0 % Basophils (%) (Auto) 0.3 0.0-5.0 % Neutrophils # (Auto) 4.4 1.8-7.7 K/uL Lymphocytes # (Auto) 1.1 1.0-4.8 K/uL Monocytes # (Auto) 0.6 0.1-1.0 K/uL Eosinophils # (Auto) 0.01 0.00-0.70 K/uL Basophils # (Auto) 0.02 0.00-0.20 K/uL Absolute Immature Granulocyte (auto 0.05 0-1 K/uL Nucleated Red Blood Cells 0.0 0.0-0.19 % Segmented Neutrophils % 60 40-70 % Band Neutrophils % 2 0-2 % Lymphocytes % (Manual) 32 22-44 % Monocytes % (Manual) 6 2-9 % Differential Comment MANUAL DIFFERENTIAL White Cell Morphology Comment NORMAL Platelet Morphology Comment DECREASED Red Blood Cell Morphology ANISO 2+ Chemistry Labs: Test 02/23/24 04:15 Range/Units Sodium Level 141 136-145 mmol/L Potassium Level 3.5 3.5-5.1 mmol/L Chloride Level 106 101-111 mmol/L Carbon Dioxide Level 25 21-32 mmol/L Blood Urea Nitrogen 20 H 7-18 mg/dL Creatinine 0.7 0.5-1.3 mg/dL Glomerular Filtration Rate Calc 94 >90 mL/min Random Glucose 110 H 70-105 mg/dL Total Calcium 8.6 8.5-10.1 mg/dL Phosphorus Level 3.2 2.5-4.9 mg/dL Magnesium Level 1.90 1.80-2.40 mg/dL Total Bilirubin 0.8 # 0.2-1.0 mg/dL Direct Bilirubin 0.2 0.0-0.3 mg/dL Aspartate Amino Transf (AST/SGOT) 160 H 10-37 U/L Alanine Aminotransferase (ALT/SGPT) 201 H 12-78 U/L Alkaline Phosphatase 150 H 50-136 U/L Total Creatine Kinase 320 H 21-232 U/L Total Protein 6.4 6.0-8.3 g/dL Albumin 2.5 L 3.5-5.0 g/dL Procalcitonin 0.42 0.05-0.5 ng/mL DIAGNOSTICS / RADIOLOGY RESULTS: [ PATIENT: JF ECHOLS MR#: [id number] : 1945 SEX: M AGE: 78 LOCATION: [facility] ORDER [id number] STATUS: ADM IN REPORT#: [id number] SERVICE 0400 REASON: elevated lfts ORDERING PHYSICIAN: MEGAN FRAUSTO NP PROCEDURE: ABDRUQLTD - US ABDOMINAL RUQ\LTD US ABDOMINAL RUQ\E\LTD HISTORY: Elevated liver function tests COMPARISON: None TECHNIQUE: Right upper quadrant abdominal ultrasound study was performed. FINDINGS: Liver measures 12 cm. The visualized portion of the pancreas is within normal limits. Liver is echogenic consistent with liver parenchymal disease. Gallstones are seen in the gallbladder. Common duct measures 2 mm. No evidence of gallbladder wall thickening is seen. Right kidney measures 9 x 4 x 6 cm. No hydronephrosis is seen of the right kidney. IMPRESSION: 1. Gallstones. No ductal dilatation is seen. 2. No hydronephrosis is seen. DICTATED BY: FELIX SAMSON MD DATE: 02/23/24851 ELECTRONICALLY SIGNED BY: FELIX SAMSON MD DATE: 02/23/24912 PATIENT: JF ECHOLS MR#: [id number] : 1945 SEX: M AGE: 78 LOCATION: [facility] ORDER 2300 STATUS: ADM IN REPORT#: [id number] SERVICE 0600 REASON: pneumonia ORDERING PHYSICIAN: MEGAN FRAUSTO NP PROCEDURE: CXR1VW - CHEST 1VW CHEST 1VW HISTORY: Pneumonia COMPARISON: 02/20/2024 FINDINGS: A frontal projection of the chest was obtained. Mild bilateral pulmonary infiltrates are seen. The heart is borderline enlarged. Degenerative changes are seen. Aortic calcifications are seen. IMPRESSION: 1. Mild bilateral pulmonary infiltrates. DICTATED BY: FELIX SAMSON MD DATE: 02/23/24923 ELECTRONICALLY SIGNED BY: FELIX SAMSON MD DATE: 02/23/24927 PLAN NEURO: Minimize central acting medications as possible. Maintain fall precautions, adequate lighting during the day PULMONARY: Supplemental 02 as needed. Maintain aspiration precautions at all times CARDIOVASCULAR: Follow hemodynamics. Vital signs per facility protocol GI & NUTRITION: Continue with nutritional support. Continue stool softeners and laxatives as needed. KIDNEYS & ELECTROLYTES: Strict monitoring of intake, output and overall fluid balance. Avoid nephrotoxic medications to the extent possible. Medications to be dosed according to renal function. Monitor electrolytes and replace as needed CK in AM , IV flulids . Hold statin ENDOCRINE: Maintain blood glucose between 100-180 at all times. Hypoglycemia protocol in place INFECTIOUS DISEASE: Trend temperature, WBC and procalcitonin level Follow cultures, deescalate antibiotics as soon as possible. Panculture if new onset fever ONCOLOGY/HEMATOLOGY/COAGULATION: Monitor for s/s of bleeding Monitor hemoglobin, coagulation studies as needed SKIN: Pressure ulcer prevention per facility protocol Specialty mattress ORTHO/REHAB: Continue PT/OT Prophylaxis: Continue GI and DVT prophylaxis Code Status: Full Resuscitation Disposition: Home vs SNF Other: Total patient care time excluding any procedures: 40 min ATTESTATION BY PHYSICIAN The patient has been seen and evaluated, the case has been discussed with the SNACK STEWARDESS, I agree with the clinical findings and plan of care. Foreign Goldstein MD, ECTOR N NP Feb 23, 2024 12:02
--- NOTE | 2024-02-23 12:57 | NUR ---
Nutritional Note: Chart, meds, and labs Reviewed. Pt s/p LAG SCREWER BEDSIDE SWALLOW EVAL COMPLETED (02/19/24): No overt s/s of aspiration observed. Recommend PUREE solids, thin liquids, and pills CRUSHED WITH PUREE as tolerated. Current PO intake poor. Recommend: -Puree added to diet order. -TWOCAL w/ trays -Adjust feeding plan based on clinical progress and lab values. -if PO intake continues <50% of meals taken, consider alternate route for nutrition Tf. -Start TF vital af 1.2 @20ml x8 hrs and then increase by 5ml q 6 hr to goal rate 45 ml/hr. 24 TF total provides: 1296kcal, 81 gm/pro,. H20 flush as per MD. - Electrolyte replacements per protocol -Monitor PO intake%, wt, and labs -If No BM >3days consider bowel stimulant. - Please notify RD if additional nutrition concerns arise. SEE RD Nutritional Assessment for additional assessment information. Addendum: 02/23/24 at [address] Amended: Links added.
[2024-02-24] VITALS (11 sets, daily range): BP systolic 130–154; BP diastolic 62–86; PULSE 61–78; RESP 16–18; TEMP 97.4–98.6; O2SAT 95–97
[2024-02-24 05:15] LABS: ALBUMIN 2.2 g/dL (3.5-5.0); BILIRUBIN,DIRECT 0.2 mg/dL (0.0-0.3); BILIRUBIN,TOTAL 0.7 mg/dL (0.2-1.0); TOTAL PROTEIN, SERUM 6.1 g/dL (6.0-8.3)
[2024-02-24] MEDS: 0.9%NACL 1000ML 1,000 ML IV SCH (10:03)
--- NOTE | 2024-02-24 10:09 | PN ---
[facility] PROGRESS NOTE Date Patient Seen: Feb 24, 2024 Time of Visit: 10:06 Supervising Physician: Mesfin Goldstein PROBLEM LIST: Sepsis, present on admission Acute hypoxic respiratory failure, present on admission Community acquired pneumonia, bacterial Influenza A viral infection on admission Acute kidney injury, resolved Acute dehydration, resolved Acute Rhabdomyolysis , statin on Hold Dementia with acute encephalopathy on admission Seizures disorder Hypertension Acute non STEMI type 2 secondary to metabolic demand Hyperlipidemia Hypertension Preserved EF 60-65% per echocardiogram 02/19/2024 Plan Summary: Supplemental oxygen as needed Wean off as tolerates Continue Tamiflu Continue Rocephin Continue Zmax Trend CK Continue NS @ 150ml/hr Trend LFTs daily CM for discharge planning Dispo:Home as per family's wishes INTERVAL HISTORY: 78 years old man brought in by family due to poor appetite, confusion, cough and fever Symptoms started a few days ago Patient suffers from dementia and is non verbal, most of the information obtained by family As per family, patient not being like himself No diarrhea No seizures No nausea or vomiting 02/20 - Pt remains weak at this point. Currently stable on room air. Temp and BP are stable Continues on IV abx and Tamiflu. CK trending upward. now at 810 , LFts also elevated. Statin on Hold . Other medications reviewed as well will continue on IV fluids . and REassess in AM Daughter at bedside during my evaluation. 02/21 - Patient is seen and evaluated at the bedside. Pt continues to be very weak, deconditioned and debilitated. Pt remains on room air with no signs of dyspnea. LFTs remain elevated therefore will obtain an abd US. Patient's CK trending downward. Will continue IV fluids for now. Pt to continue IV abts. Will repeat CXR to evaluate pneumonia. 02/22 - patient is seen and evaluated at the bedside. Patient is lying in bed continues to be very weak, deconditioned and debilitated. Patient remains on room air and denies dyspnea at this time. Patient's LFTs trending downward. Patient did have an abdominal ultrasound which showed gallstones however no CBD dilatation. Patient had a chest x-ray which shows pulmonary infiltrates are improving. We will continue current antibiotic treatment. We will reach out to family regarding discharge planning as patient would benefit from SNF placement. 02/23 - patient is seen and evaluated at the bedside. Patient continues to be very weak, debilitated and deconditioned. Patient remains on room air with no signs of respiratory distress. No acute changes reported overnight. As per nursing, patient has very poor appetite. Patient's CK remains elevated. Give patient a bolus of IV fluids and increase rate. Instructed nursing to ensure patient is receiving IV fluids continuously. LFTs are trending down towards normal limits. Vital signs are stable. As per nursing, family plans to take patient home as they have very good support system. We will continue to push IV fluids and monitor CK levels closely. We will plan to DC home once CK is within normal limits. Patient's renal function has not been affected and currently within normal limits. REVIEW OF SYSTEMS: 12 point ROS reviewed with patient. Pertinent positives mentioned above, otherwise negative PHYSICAL EXAM: GENERAL: alert, weak, awake oriented x 1 HEENT: EOMI, Sclera non icteric, moist mucosa NECK: Supple, no JVD, trachea midline LUNGS: decreased breath sounds, no wheezing HEART: Regular rate and rhythm. Normal S1 and S2, without murmurs ABD: Abdomen soft, nontender. Bowel sounds present EXT: No clubbing cyanosis or edema NEURO: Alert and oriented to person, follows commands Vital Signs (last 8hr) Date Time Temp Pulse Resp B/P (MAP) Pulse Ox O2 Delivery O2 Flow Rate FiO2 02/24/24 06:28 61 18 N/A Room Air 21 02/24/24 06:28 61 18 02/24/24 04:00 97.9 61 16 146/68 99 Room Air LABS: Hematology Labs: Test 02/23/24 04:15 Range/Units White Blood Count 6.2 # 4.8-10.8 K/uL Red Blood Count 3.64 L 4.50-6.20 MIL/uL Hemoglobin 10.7 L 14.0-18.0 g/dL Hematocrit 31.3 L 42-54 % Mean Corpuscular Volume 86.0 79-99 fL Mean Corpuscular Hemoglobin 29.4 27.0-33.0 pg Mean Corpuscular Hemoglobin Concent 34.2 32.0-36.0 g/dL Red Cell Distribution Width 13.5 11.0-15.5 % Platelet Count 183 # 130-400 K/uL Mean Platelet Volume 10.2 7.5-10.5 fL Immature Granulocyte % (Auto) 0.8 0-1 % Neutrophils (%) (Auto) 71.8 40.0-77.0 % Lymphocytes (%) (Auto) 17.3 L 21.0-51.0 % Monocytes (%) (Auto) 9.6 3.0-13.0 % Eosinophils (%) (Auto) 0.2 0.0-8.0 % Basophils (%) (Auto) 0.3 0.0-5.0 % Neutrophils # (Auto) 4.4 1.8-7.7 K/uL Lymphocytes # (Auto) 1.1 1.0-4.8 K/uL Monocytes # (Auto) 0.6 0.1-1.0 K/uL Eosinophils # (Auto) 0.01 0.00-0.70 K/uL Basophils # (Auto) 0.02 0.00-0.20 K/uL Absolute Immature Granulocyte (auto 0.05 0-1 K/uL Nucleated Red Blood Cells 0.0 0.0-0.19 % Chemistry Labs: Test 02/24/24 04:32 02/23/24 04:15 Range/Units Total Bilirubin 0.7 0.2-1.0 mg/dL Direct Bilirubin 0.2 0.0-0.3 mg/dL Aspartate Amino Transf (AST/SGOT) 109 H 10-37 U/L Alanine Aminotransferase (ALT/SGPT) 144 H 12-78 U/L Alkaline Phosphatase 130 50-136 U/L Total Creatine Kinase 537 #*H 21-232 U/L Total Protein 6.1 6.0-8.3 g/dL Albumin 2.2 L 3.5-5.0 g/dL Sodium Level 141 136-145 mmol/L Potassium Level 3.5 3.5-5.1 mmol/L Chloride Level 106 101-111 mmol/L Carbon Dioxide Level 25 21-32 mmol/L Blood Urea Nitrogen 20 H 7-18 mg/dL Creatinine 0.7 0.5-1.3 mg/dL Glomerular Filtration Rate Calc 94 >90 mL/min Random Glucose 110 H 70-105 mg/dL Total Calcium 8.6 8.5-10.1 mg/dL Phosphorus Level 3.2 2.5-4.9 mg/dL Magnesium Level 1.90 1.80-2.40 mg/dL Procalcitonin 0.42 0.05-0.5 ng/mL DIAGNOSTICS / RADIOLOGY RESULTS: [ ] PLAN NEURO: Minimize central acting medications as possible. Maintain fall precautions, adequate lighting during the day PULMONARY: Supplemental 02 as needed. Maintain aspiration precautions at all times CARDIOVASCULAR: Follow hemodynamics. Vital signs per facility protocol GI & NUTRITION: Continue with nutritional support. Continue stool softeners and laxatives as needed. KIDNEYS & ELECTROLYTES: Strict monitoring of intake, output and overall fluid balance. Avoid nephrotoxic medications to the extent possible. Medications to be dosed according to renal function. Monitor electrolytes and replace as needed CK in AM , IV flulids . Hold statin ENDOCRINE: Maintain blood glucose between 100-180 at all times. Hypoglycemia protocol in place INFECTIOUS DISEASE: Trend temperature, WBC and procalcitonin level Follow cultures, deescalate antibiotics as soon as possible. Panculture if new onset fever ONCOLOGY/HEMATOLOGY/COAGULATION: Monitor for s/s of bleeding Monitor hemoglobin, coagulation studies as needed SKIN: Pressure ulcer prevention per facility protocol Specialty mattress ORTHO/REHAB: Continue PT/OT Prophylaxis: Continue GI and DVT prophylaxis Code Status: Full Resuscitation Disposition: Home once medically stable for discharge Other: Total patient care time excluding any procedures: 40 min ATTESTATION BY PHYSICIAN The patient has been seen and evaluated, the case has been discussed with the DIRECTOR DATA MANAGEMENT, I agree with the clinical findings and plan of care. Foreign Goldstein MD, ECTOR N DIRECTOR DATA MANAGEMENT Feb 24, 2024 10:09
[2024-02-24] MEDS ORDERED: 0.9%NACL 1000ML 1,000 ML IV SCH (10:30)
[2024-02-25] VITALS (9 sets, daily range): BP systolic 128–147; BP diastolic 50–91; PULSE 58–69; RESP 16–20; TEMP 97.2–98.4; O2SAT 96–98
[2024-02-25 05:50] LABS: ALBUMIN 2.2 g/dL (3.5-5.0); BILIRUBIN,DIRECT 0.2 mg/dL (0.0-0.3); BILIRUBIN,TOTAL 0.6 mg/dL (0.2-1.0); CREATININE 0.7 mg/dL (0.5-1.3); POTASSIUM 3.5 mmol/L (3.5-5.1); TOTAL PROTEIN, SERUM 5.6 g/dL (6.0-8.3)
--- NOTE | 2024-02-25 11:08 | PN ---
[facility] PROGRESS NOTE Date Patient Seen: Feb 25, 2024 Time of Visit: 11:04 Supervising Physician: Dr Carlson PROBLEM LIST: Sepsis, present on admission resolved Acute hypoxic respiratory failure, present on admission resolved Community acquired pneumonia, bacterial Influenza A viral infection on admission resolved Acute kidney injury, resolved Acute dehydration, resolved Acute Rhabdomyolysis , statin on Hold - improving Dementia with acute encephalopathy on admission Seizures disorder Hypertension Acute non STEMI type 2 secondary to metabolic demand Hyperlipidemia Hypertension Preserved EF 60-65% per echocardiogram 02/19/2024 Plan Summary: Supplemental oxygen as needed Wean off as tolerates Continue Rocephin Continue Zmax Trend CK Continue NS @ 150ml/hr Trend LFTs daily CM for discharge planning Dispo:Home as per family's wishes INTERVAL HISTORY: 78 years old man brought in by family due to poor appetite, confusion, cough and fever Symptoms started a few days ago Patient suffers from dementia and is non verbal, most of the information obta ined by family As per family, patient not being like himself No diarrhea No seizures No nausea or vomiting 02/20 - Pt remains weak at this point. Currently stable on room air. Temp and BP are stable Continues on IV abx and Tamiflu. CK trending upward. now at 810 , LFts also elevated. Statin on Hold . Other medications reviewed as well will continue on IV fluids . and REassess in AM Daughter at bedside during my evaluation. 02/21 - Patient is seen and evaluated at the bedside. Pt continues to be very weak, deconditioned and debilitated. Pt remains on room air with no signs of dyspnea. LFTs remain elevated therefore will obtain an abd US. Patient's CK trending downward. Will continue IV fluids for now. Pt to continue IV abts. Will repeat CXR to evaluate pneumonia. 02/22 - patient is seen and evaluated at the bedside. Patient is lying in bed continues to be very weak, deconditioned and debilitated. Patient remains on room air and denies dyspnea at this time. Patient's LFTs trending downward. Patient did have an abdominal ultrasound which showed gallstones however no CBD dilatation. Patient had a chest x-ray which shows pulmonary infiltrates are improving. We will continue current antibiotic treatment. We will reach out to family regarding discharge planning as patient would benefit from SNF placement. 02/23 - patient is seen and evaluated at the bedside. Patient continues to be very weak, debilitated and deconditioned. Patient remains on room air with no signs of respiratory distress. No acute changes reported overnight. As per nursing, patient has very poor appetite. Patient's CK remains elevated. Give patient a bolus of IV fluids and increase rate. Instructed nursing to ensure patient is receiving IV fluids continuously. LFTs are trending down towards normal limits. Vital signs are stable. As per nursing, family plans to take patient home as they have very good support system. We will continue to push IV fluids and monitor CK levels closely. We will plan to DC home once CK is within normal limits. Patient's renal function has not been affected and currently within normal limits. 02/24 - patient is seen sitting up in bed resting quietly with no signs of acute distress. Patient remains on room air at this time. No acute changes reported overnight. Patient's LFTs continues trending down. Patient's CK levels also continue trending down. Vital signs are stable. Labs are within normal limits. We will continue IV fluids for now. We will repeat CK levels in a.m.. We will plan to DC home as per family's wishes once CK is within normal limits. REVIEW OF SYSTEMS: 12 point ROS reviewed with patient. Pertinent positives mentioned above, otherwise negative PHYSICAL EXAM: GENERAL: alert, weak, awake oriented x 1 HEENT: EOMI, Sclera non icteric, moist mucosa NECK: Supple, no JVD, trachea midline LUNGS: decreased breath sounds, no wheezing HEART: Regular rate and rhythm. Normal S1 and S2, without murmurs ABD: Abdomen soft, nontender. Bowel sounds present EXT: No clubbing cyanosis or edema NEURO: Alert and oriented to person, follows commands Vital Signs (last 8hr) Date Time Temp Pulse Resp B/P (MAP) Pulse Ox O2 Delivery O2 Flow Rate FiO2 02/25/24 08:33 98.4 61 19 147/91 90 02/25/24 06:36 68 18 N/A Room Air 21 02/25/24 06:32 69 18 02/25/24 04:00 97.3 58 16 140/50 95 Room Air LABS: Chemistry Labs: Test 02/25/24 05:16 Range/Units Sodium Level 142 136-145 mmol/L Potassium Level 3.5 3.5-5.1 mmol/L Chloride Level 109 101-111 mmol/L Carbon Dioxide Level 30 21-32 mmol/L Blood Urea Nitrogen 9 7-18 mg/dL Creatinine 0.7 0.5-1.3 mg/dL Glomerular Filtration Rate Calc 94 >90 mL/min Random Glucose 100 70-105 mg/dL Total Calcium 8.3 L 8.5-10.1 mg/dL Total Bilirubin 0.6 0.2-1.0 mg/dL Direct Bilirubin 0.2 0.0-0.3 mg/dL Aspartate Amino Transf (AST/SGOT) 97 H 10-37 U/L Alanine Aminotransferase (ALT/SGPT) 125 H 12-78 U/L Alkaline Phosphatase 121 50-136 U/L Total Creatine Kinase 323 #H 21-232 U/L Total Protein 5.6 L 6.0-8.3 g/dL Albumin 2.2 L 3.5-5.0 g/dL DIAGNOSTICS / RADIOLOGY RESULTS: [ ] PLAN NEURO: Minimize central acting medications as possible. Maintain fall precautions, adequate lighting during the day PULMONARY: Supplemental 02 as needed. Maintain aspiration precautions at all times CARDIOVASCULAR: Follow hemodynamics. Vital signs per facility protocol GI & NUTRITION: Continue with nutritional support. Continue stool softeners and laxatives as needed. KIDNEYS & ELECTROLYTES: Strict monitoring of intake, output and overall fluid balance. Avoid nephrotoxic medications to the extent possible. Medications to be dosed according to renal function. Monitor electrolytes and replace as needed CK in AM , IV flulids . Hold statin ENDOCRINE: Maintain blood glucose between 100-180 at all times. Hypoglycemia protocol in place INFECTIOUS DISEASE: Trend temperature, WBC and procalcitonin level Follow cultures, deescalate antibiotics as soon as possible. Panculture if new onset fever ONCOLOGY/HEMATOLOGY/COAGULATION: Monitor for s/s of bleeding Monitor hemoglobin, coagulation studies as needed SKIN: Pressure ulcer prevention per facility protocol Specialty mattress ORTHO/REHAB: Continue PT/OT Prophylaxis: Continue GI and DVT prophylaxis Code Status: Full Resuscitation Disposition: Home once medically stable for discharge Other: Total patient care time excluding any procedures: 40 min ATTESTATION BY PHYSICIAN I have evaluated the patient chart, medical records, and spoke with appropriate staff. I reviewed the documentation, medical decision making, and treatment plan as noted by the mid-level provider above. I agree with the findings and plan of care. Oscar Carlson MD, ECTOR N GUIDANCE ADVISER Feb 25, 2024 11:08
[2024-02-25] MEDS ORDERED: AMOX-426 PO (15:55)
--- NOTE | 2024-02-25 16:01 | DS ---
[facility] DISCHARGE SUMMARY Date Patient Seen: Feb 25, 2024 Time of Visit: 15:57 Supervising Physician: Dr Carlson PROBLEM LIST: Sepsis, present on admission resolved Acute hypoxic respiratory failure, present on admission resolved Community acquired pneumonia, bacterial resolved Influenza A viral infection on admission resolved Acute kidney injury, resolved Acute dehydration, resolved Acute Rhabdomyolysis , statin on Hold - resolved Dementia with acute encephalopathy on admission Seizures disorder Hypertension Acute non STEMI type 2 secondary to metabolic demand Hyperlipidemia Hypertension Preserved EF 60-65% per echocardiogram 02/19/2024 HOSPITAL COURSE: HPI (per admitting provider) 78 years old man brought in by family due to poor appetite, confusion, cough and fever Symptoms started a few days ago Patient suffers from dementia and is non verbal, most of the information obtained by family As per family, patient not being like himself No diarrhea No seizures No nausea or vomiting Patient appears to lethargic but easily arousable to voice. He is pleasantly co nfused, appears to be baseline due to his underlying dementia. ABG this morning unremarkable on 2 L via nasal cannula. H&H slightly decreased from hydration 11.9 over 36[place] [address] slightly decreased as well. Holding Lovenox for now, SCDs only due to acute thrombocytopenia. Chemistry creatinine is 0.8 GFR 90, trending troponins and patient had one elevated troponin at 91.8 but trending down with the latest one being 43.8 normal. CK trended 446, 759, 795. Patient continues with light hydration of LR. Blood cultures with no growth times 24 hours. 2D echo shows left ventricle is normal size, LVEF of 60- 65% left ventricular diastolic function is normal aortic valve leaflets appeared thickened open well. There is no pericardial effusion IVC is normal size and collapses less than 50% with inspiration. CTA head of the brain with no acute findings, atrophy. On CT of the chest shows bilateral pneumonia. He is pending Cardiology consult he continues on Tamiflu 75 mg p.o. b.i.d, Rocephin and azithromycin. He has been evaluated by speech therapy and passed bedside eval. Pt remains weak at this point. Currently stable on room air. Temp and BP are stable Continues on IV abx (Day 3) and Tamiflu (Day 2) Denies any headache or dizziness. Denies any chest pain or palpitations. Denies any cough or shortness of breath at rest. Denies any nausea, vomiting, abdominal pain, or melena 78 years old man brought in by family due to poor appetite, confusion, cough and fever Symptoms started a few days ago Patient suffers from dementia and is non verbal, most of the information obtained by family As per family, patient not being like himself No diarrhea No seizures No nausea or vomiting 02/20 - Pt remains weak at this point. Currently stable on room air. Temp and BP are stable Continues on IV abx and Tamiflu. CK trending upward. now at 810 , LFts also elevated. Statin on Hold . Other medications reviewed as well will continue on IV fluids . and REassess in AM Daughter at bedside during my evaluation. 02/21 - Patient is seen and evaluated at the bedside. Pt continues to be very weak, deconditioned and debilitated. Pt remains on room air with no signs of dyspnea. LFTs remain elevated therefore will obtain an abd US. Patient's CK trending downward. Will continue IV fluids for now. Pt to continue IV abts. Will repeat CXR to evaluate pneumonia. 02/22 - patient is seen and evaluated at the bedside. Patient is lying in bed continues to be very weak, deconditioned and debilitated. Patient remains on room air and denies dyspnea at this time. Patient's LFTs trending downward. Patient did have an abdominal ultrasound which showed gallstones however no CBD dilatation. Patient had a chest x-ray which shows pulmonary infiltrates are improving. We will continue current antibiotic treatment. We will reach out to family regarding discharge planning as patient would benefit from SNF placement. 02/23 - patient is seen and evaluated at the bedside. Patient continues to be very weak, debilitated and deconditioned. Patient remains on room air with no signs of respiratory distress. No acute changes reported overnight. As per nursing, patient has very poor appetite. Patient's CK remains elevated. Give patient a bolus of IV fluids and increase rate. Instructed nursing to ensure patient is receiving IV fluids continuously. LFTs are trending down towards normal limits. Vital signs are stable. As per nursing, family plans to take patient home as they have very good support system. We will continue to push IV fluids and monitor CK levels closely. We will plan to DC home once CK is within normal limits. Patient's renal function has not been affected and currently within normal limits. 02/24 - patient is seen sitting up in bed resting quietly with no signs of acute distress. Patient remains on room air at this time. No acute changes reported overnight. Patient's LFTs continues trending down. Patient's CK levels also continue trending down. Vital signs are stable. Labs are within normal limits. Pt has been encouraged to increase fluid intake. Family has been offered snf on several occasions and declined. As per family's request, pt will be discharged home. Pt to followup with PCP in 1-2 days. Med rec has been completed. New RX have been sent to patient's pharmacy. Education regarding current diagnosis has been provided to the family. all questions have been answered. Pt to be discharged home. The patient was treated for the following problems: ACTIVE PROBLEM LIST FOR THE HOSPITALIZATION: Sepsis, present on admission resolved Acute hypoxic respiratory failure, present on admission resolved Community acquired pneumonia, bacterial resolved Influenza A viral infection on admission resolved Acute kidney injury, resolved Acute dehydration, resolved Acute Rhabdomyolysis , statin on Hold - resolved Dementia with acute encephalopathy on admission Seizures disorder Hypertension Acute non STEMI type 2 secondary to metabolic demand Hyperlipidemia Hypertension Preserved EF 60-65% per echocardiogram 02/19/2024 CHRONIC PROBLEMS: continue previous management per PCP unless otherwise indicat ed [employer]OL[employer]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 Pt hemodynamically stable and afebrile at time of discharge. PCP notified of patients admission, hospital course and discharge. New Medications: Amoxicillin/Potassium Clav (Augmentin 500-125 Tablet) 500 Mg-125 Mg Tablet 1 TAB PO BID for 7 Days, #14 TAB 0 Refills Continued Medications: Atorvastatin Calcium (Atorvastatin Calcium) 40 Mg Tablet 40 MG PO HS Divalproex Sodium (Divalproex Sodium ER) 250 Mg Tab.er.24h 250 MG PO HS Haloperidol (Haloperidol) 5 Mg Tablet 5 MG PO HS Sertraline HCl (Sertraline HCl) 100 Mg Tablet 100 MG PO DAILY PHYSICAL EXAM: GENERAL: alert, weak, awake oriented x 1 HEENT: EOMI, Sclera non icteric, moist mucosa NECK: Supple, no JVD, trachea midline LUNGS: decreased breath sounds, no wheezing HEART: Regular rate and rhythm. Normal S1 and S2, without murmurs ABD: Abdomen soft, nontender. Bowel sounds present EXT: No clubbing cyanosis or edema NEURO: Alert and oriented to person, follows commands FOLLOW-UP: Follow-up with PCP in 2-3 days RECOMMENDATIONS: See Discharge Instructions This case was seen and discussed with my supervising physician. More than 30 minutes spent on discharge process, including evaluation of the patient, discussion with nursing staff, medication reconciliation and follow-up appointments ATTESTATION BY PHYSICIAN I have evaluated the patient chart, medical records, and spoke with appropriate staff. I reviewed the documentation, medical decision making, and treatment plan as noted by the mid-level provider above. I agree with the findings and plan of care. Oscar Carlson MD, ECTOR N NP Feb 25, 2024 16:01
--- NOTE | 2024-02-25 17:20 | NUR ---
DISCHARGE PATIENT HAS BEEN DISCHARGED HOME. PATIENT AND DAUGHTER AT BEDSIDE VERBALIZED UNDERSTANDING OF DISCHARGE PAPERWORK. PIV REMOVED. PRESSURE GAUZE AND TAPE APPLIED TO SITE. PATIENT'S NEW PRESCRIPTION HAS BEEN SENT TO PREFERRED PHARMACY. PATIENT WHEELED DOWN TO PRIVATE AUTOMOBILE ACCOMPANIED BY DAUGHTER, CLINICAL LEADERSHIP PROGRAM INTERN, AND TECH.
== END 2024-02-25 17:22 | disposition home or self-care (01) | DRG 871 ==
LOC: EDH 09:50 → EDHIP 12:57 → 4DH 20:30
PROVIDERS: ADMIT Internal Medicine Critical Care Medicine; ATTEND Internal Medicine Critical Care Medicine
DX: A41.9 Sepsis, unspecified organism (principal); I21.A1 Myocardial infarction type 2; J96.01 Acute respiratory failure with hypoxia; J15.9 Unspecified bacterial pneumonia; J10.08 Influenza due to other identified influenza virus with other specified pneumonia; N17.9 Acute kidney failure, unspecified; M62.82 Rhabdomyolysis; G93.40 Encephalopathy, unspecified; R62.7 Adult failure to thrive; I12.9 Hypertensive chronic kidney disease with stage 1 through stage 4 chronic kidney disease, or unspecified chronic kidney disease; N18.30 Chronic kidney disease, stage 3 unspecified; D69.6 Thrombocytopenia, unspecified; E86.0 Dehydration; E78.00 Pure hypercholesterolemia, unspecified; F03.90 Unspecified dementia, unspecified severity, without behavioral disturbance, psychotic disturbance, mood disturbance, and anxiety; G40.909 Epilepsy, unspecified, not intractable, without status epilepticus; F32.A Depression, unspecified; Z79.899 Other long term (current) drug therapy
CPT/HCPCS: 36415; 36600; 70450; 71045; 71250; 76705; 80048; 80053; 80061; 80076; 80164; 81001; 82140; 82550; 82803; 82948; 83036; 83605; 83735; 83880; 84100; 84145; 84443; 84484; 85025; 85027; 85610; 85730; 87040; 87426; 87804; 92610; 93005; 93306; 93356; 94640; 94664; 96360; 99285; G0378; J0360; J0456; J0696; J1650; J2470; J3475; J7030; A4600